=== PATIENT | male | born 1975 | race Hispanic/Latino ===

== ENCOUNTER 2017-04-15 00:46 | Inpatient (IN) | payer OTHER ==
--- NOTE | 2017-04-15 01:06 | ED PDOC ---
Arrival/HPI - General Chief Complaint: Alcohol Ingestion Time Seen by Provider: 04/15/17 00:51 Historian: Patient - History of Present Illness Narrative History of Present Illness (Text): 04/15/17 01:06 Ru Arguelles is a 41 year old male, whose past medical history includes chronic alcohol abuse and substance abuse, who presents to the Emergency department brought in by EMS for alcohol intoxication. Patient states he drank alcohol, used cocaine and smoked marijuana tonight. Patient also reports he is experiencing chest pain and hematemesis. Patient denies any fever, chills, shortness of breath, diarrhea, urinary symptoms, back pain, neck pain, headache , dizziness, or any other complaints. Time/Duration: Other (tonight) Symptom Onset: Gradual Symptom Course: Unchanged Activities at Onset: Rest, Light Past Medical History - Provider Review Nursing Documentation Reviewed: Yes - Infectious Disease Hx of Infectious Diseases: None - Tetanus Immunization Tetanus Immunization: Unknown - Past Medical History Past Medical History: No Previous - Cardiac Hx Cardiac Disorders: No - Pulmonary Hx Respiratory Disorders: No - Neurological Hx Neurological Disorder: Yes Hx Dizziness: Yes Hx Seizures: Yes - HEENT Hx HEENT Disorder: No - Renal Hx Renal Disorder: No - Endocrine/Metabolic Hx Endocrine Disorders: No - Hematological/Oncological Hx Blood Disorders: Yes Other/Comment: alcoholic hepatitis, rhabdomyalysis - Integumentary Hx Dermatological Disorder: No - Musculoskeletal/Rheumatological Hx Musculoskeletal Disorders: Yes Hx Back Pain: Yes Hx Falls: Yes Hx Unsteady Gait: Yes Other/Comment: HX RECURRENT LEFT SHOULDER DISLOCATION - Gastrointestinal Hx Gastrointestinal Disorders: No - Genitourinary/Gynecological Hx Genitourinary Disorders: No - Psychiatric Hx Psychophysiologic Disorder: Yes (ETOH ABUSE,DRINKS DAILY,COCAINE USE-SNIFFS) Hx Anxiety: Yes Hx Substance Use: Yes (COCAINE USE.) - Past Surgical History Past Surgical History: No Previous - Surgical History Other/Comment: ENDOSCOPY, COLONOSCOPY. admits to having a dislocated shoulder - Anesthesia Hx Anesthesia: Yes Hx Anesthesia Reactions: No Hx Malignant Hyperthermia: No - Suicidal Assessment Feels Threatened In Home Enviroment: No Family/Social History - Physician Review Nursing Documentation Reviewed: Yes Family/Social History: Unknown Family HX Smoking Status: Current Some Days Smoker Hx Alcohol Use: Yes (ETOH ABUSE. DRINKS DAILY UNCERTAIN ABOUT AMOUNT) Frequency of alcohol use: Daily Hx Substance Use: Yes (COCAINE USE.) Hx Substance Use Treatment: No Allergies/Home Meds Allergies/Adverse Reactions: Allergies No Known Allergies Allergy (Verified 04/15/17 15:01) Home Medications: Home Meds Medication Instructions Recorded Confirmed ALPRAZolam [Xanax] 1 mg PO TID 04/15/17 04/15/17 levETIRAcetam [Keppra] 500 mg PO BID 04/15/17 04/15/17 Review of Systems - Physician Review All systems were reviewed & negative as marked: Yes - Review of Systems Constitutional: Normal. absent: Fevers Eyes: Normal ENT: Normal Respiratory: Normal. absent: SOB, Cough Cardiovascular: Chest Pain Gastrointestinal: Hematemesis. absent: Diarrhea Genitourinary Male: Normal. absent: Dysuria, Frequency, Hematuria, Urinary Output Changes Musculoskeletal: Normal. absent: Back Pain, Neck Pain Skin: Normal. absent: Rash Neurological: Normal. absent: Headache, Dizziness Endocrine: Normal Hemo/Lymphatic: Normal Psychiatric: Other (+alcohol intoxication) Physical Exam Vital Signs Reviewed: Yes Vital Signs Temp Pulse Resp BP Pulse Ox 04/15/17 03:38 87 19 133/75 96 04/15/17 00:57 68.3 F L 106 H 20 156/114 H 99 Temperature: Afebrile Blood Pressure: Normal Pulse: Regular Respiratory Rate: Normal Appearance: Positive for: Well-Appearing, Non-Toxic, Comfortable Pain Distress: None Mental Status: Positive for: Alert and Oriented X 3 - Systems Exam Head: Present: Atraumatic, Normocephalic Pupils: Present: PERRL Extroacular Muscles: Present: EOMI Conjunctiva: Present: Normal Mouth: Present: Moist Mucous Membranes Neck: Present: Normal Range of Motion Respiratory/Chest: Present: Clear to Auscultation, Good Air Exchange. No: Respiratory Distress, Accessory Muscle Use Cardiovascular: Present: Regular Rate and Rhythm, Normal S1, S2. No: Murmurs Abdomen: Present: Normal Bowel Sounds. No: Tenderness, Distention, Peritoneal Signs Back: Present: Normal Inspection Upper Extremity: Present: Normal Inspection. No: Cyanosis, Edema Lower Extremity: Present: Normal Inspection. No: Edema Neurological: Present: GCS=15, CN II-XII Intact, Speech Normal Skin: Present: Warm, Dry, Normal Color. No: Rashes Psychiatric: Present: Alert, Oriented x 3, Normal Insight, Normal Concentration Medical Decision Making ED Course and Treatment: 04/15/17 01:06 Impression: 41 year old male brought in for alcohol intoxication complaining of chest pain and hematemesis. Plan: -- EKG -- Chest X-ray -- Labs, cardiac enzymes, alcohol level, blood type and screen -- Urine drug screen -- IV fluids -- Reassess and disposition Prior Visits: Notes and results from previous visits were reviewed. On 08/04/2016, pt was seen in the Emergency department for alcohol intoxication s/p fall. Pt was d/c home. Progress Notes: Reviewed EKG, NSR at [address]pm. LVH. Non-specific ST/T wave changes. 04/15/17 04:[address] Laquita Casper, house physician, who is aware and agrees with plan. Accepts pt in to hospitalist service. Pt will go to Telemetry for chest pain and hematemesis. vice president education notified. 04/15/17 04:40 Reviewed radiology, Chest X-ray shows no acute processes. - Lab Interpretations Lab Results: 04/15/17 01:46 04/15/17 01:46 Lab Results 04/15/17 01:46: Lipase 243 04/15/17 01:46: TSH 3rd Generation 1.5 04/15/17 01:46: Phosphorus 4.1, Magnesium 2.1 04/15/17 01:46: PT 10.9, INR 1.01, APTT 30.2 04/15/17 01:46: Blood Type A POSITIVE, Antibody Screen Negative, BBK History Checked Patient has bt 04/15/17 01:46: WBC 5.6, RBC 4.77, Hgb 14.4, Hct 41.0 L, MCV 86.0, MCH 30.2, MCHC 35.1, RDW 12.3, Plt Count 270, MPV 8.4 04/15/17 01:46: Alcohol, Quantitative 375 H* 04/15/17 01:46: Sodium 142, Potassium 3.9, Chloride 101, Carbon Dioxide 23, Anion Gap 22 H, BUN 12, Creatinine 0.9, Est GFR ( Amer) > 60, Est GFR ( Non-Af Amer) > 60, Random Glucose 97, Calcium 8.5, Total Bilirubin 0.4, AST 60 H , ALT 48, Alkaline Phosphatase 93, Lactate Dehydrogenase 638, Total Creatine Kinase 305 H, CK-MB (CK-2) 1.8, CK-MB (CK-2) % Cancelled, Troponin I < 0.01 D, Total Protein 8.0, Albumin 4.6, Globulin 3.4, Albumin/Globulin Ratio 1.4 I have reviewed the lab results: Yes - RAD Interpretation Radiology Orders: 04/15/17 04:08 CHEST PORTABLE [RAD] Stat - EKG Interpretation Interpreted by ED Physician: Yes Type: 12 lead EKG - Medication Orders Current Medication Orders: Folic Acid (Folic Acid) 1 mg PO DAILY [facility] Last Admin: 04/15/17 10:33 Dose: 1 mg Multivitamins/Vitamin C 10 ml/Thiamine HCl 100 mg/ Folic Acid 1 mg/ Sodium Chloride 1,011.2 mls @ 100 mls/hr IV .Q10H7M ONE Stop: 04/15/17 23:06 Last Admin: 04/15/17 15:00 Dose: 100 mls/hr Levetiracetam 1,000 mg/ Sodium (Chloride) 110 mls @ 460 mls/hr IV Q12 [facility] Sodium Bicarbonate 150 meq/ (Dextrose) 1,150 mls @ 100 mls/hr IV .[id number] [facility] Lorazepam (Ativan) 2 mg IVP Q2H PRN; Protocol PRN Reason: Agitation Multivitamins/Minerals (Therapeutic-M Tab) 1 tab PO 0800 [facility] Last Admin: 04/15/17 10:33 Dose: 1 tab Nitroglycerin (Nitrostat Sl Tab) 0.4 mg SL Q5MIN PRN PRN Reason: Chest Pain Ondansetron HCl (Zofran Inj) 4 mg IVP Q6H PRN PRN Reason: Nausea/Vomiting Last Admin: 04/15/17 10:49 Dose: 4 mg Pantoprazole Sodium (Protonix Inj) 40 mg IVP DAILY [facility] Last Admin: 04/15/17 10:32 Dose: 40 mg Thiamine HCl (Vitamin B1 Tab) 50 mg PO DAILY [facility] Last Admin: 04/15/17 10:33 Dose: 50 mg Discontinued Medications Aspirin (Aspirin Chewable) 81 mg PO STAT STA Stop: 04/15/17 05:29 Multivitamins/Vitamin C 10 ml/Thiamine HCl 100 mg/ Folic Acid 1 mg/ Sodium Chloride 1,011.2 mls @ 100 mls/hr IV .Q10H7M ONE Stop: 04/15/17 11:17 Last Admin: 04/15/17 01:15 Dose: 100 mls/hr Lorazepam (Ativan) 2 mg IVP Q2H PRN; Protocol PRN Reason: Symptoms of alcohol withdrawl Last Admin: 04/15/17 14:23 Dose: 2 mg Lorazepam (Ativan) 1 mg IVP Q2H PRN; Protocol PRN Reason: Agitation Last Admin: 04/15/17 10:48 Dose: 1 mg Re-Assess: Reassess Psych Meds Document 04/15/17 11:18 LM (Rec: 04/15/17 12:54 LM [id number]) Reassess Psych Med Effective Lorazepam (Ativan) Confirm Administered Dose 2 mg .ROUTE .STK-MED ONE Stop: 04/15/17 14:09 Last Admin: 04/15/17 14:27 Dose: Lorazepam (Ativan) 2 mg IVP ONCE ONE PRN Reason: Protocol Stop: 04/15/17 14:10 Last Admin: 04/15/17 14:26 Dose: 2 mg Ondansetron HCl (Zofran Inj) 4 mg IVP ONCE ONE Stop: 04/15/17 14:13 Pneumococcal Polyvalent Vaccine (Pneumovax 23 Vaccine) 0.5 ml IM .ONCE ONE Stop: 04/15/17 13:24 - Scribe Statement The provider has reviewed the documentation as recorded by the Scribivan Le Provider Scribe Attestation: All medical record entries made by the Scribe were at my direction and personally dictated by me. I have reviewed the chart and agree that the record accurately reflects my personal performance of the history, physical exam, medical decision making, and the department course for this patient. I have also personally directed, reviewed, and agree with the discharge instructions and disposition. Disposition/Present on Arrival - Present on Arrival Any Indicators Present on Arrival: No History of DVT/PE: No History of Uncontrolled Diabetes: No Urinary Catheter: No History of Decub. Ulcer: No History Surgical Site Infection Following: None - Disposition Have Diagnosis and Disposition been Completed?: Yes Diagnosis: Chest pain, Cocaine substance abuse, Alcohol intoxication, Gastrointestinal hemorrhage Disposition: HOSPITALIZED Disposition Time: 04:39 Patient Plan: Observation Patient Problems: Current Active Problems Problem Status Onset Alcohol intoxication Acute Chest pain Acute Gastrointestinal hemorrhage Acute Cocaine substance abuse Chronic Condition: STABLE
[2017-04-15] MEDS ORDERED: Multivitamin (MVI) 10 ML, Thiamine 100 MG, Folic Acid 1 MG in Sodium Chloride 0.9% 1,00... IV ONE ×2 (01:11→13:00)
[2017-04-15 02:02] LABS: HEMOGLOBIN 14.4 gm/dL (14.0-18.0); MEAN CORPUSCULAR HEMOGLOBIN 30.2 pg (25.0-35.0); MEAN CORPUSCULAR HGB CONC 35.1 g/dl (31.0-37.0); MEAN PLATELET VOLUME 8.4 fl (7.0-11.0); RBC 4.77 10^6/uL (3.5-6.1); RED CELL DISTRIBUTION WIDTH 12.3 % (11.5-14.5); WHITE BLOOD COUNT 5.6 10^3/ul (4.5-11.0)
[2017-04-15 02:07] LABS: ALB/GLOB RATIO 1.4 (1.1-1.8); ALBUMIN 4.6 g/dL (3.0-4.8); ALT/SGPT 48 U/L (7-56); AST/SGOT 60 U/L (15-59); BLOOD UREA NITROGEN 12 mg/dL (7-21); CALCIUM 8.5 mg/dL (8.4-10.5); GFR AFRICAN-AMERICAN > 60; GFR NON-AFRICAN AMERICAN > 60
[2017-04-15 02:10] LABS: INR 1.01 (0.93-1.08); PARTIAL THROMBOPLASTIN TIME 30.2 Seconds (23.7-30.8); PROTHROMBIN TIME 10.9 Seconds (9.9-11.8)
[2017-04-15 02:18] LABS: TROPONIN I < 0.01 ng/mL
[2017-04-15 02:22] LABS: CK-MB 1.8 ng/mL (0.0-3.6)
[2017-04-15 05:06] LABS: MAGNESIUM 2.1 mg/dL (1.7-2.2)
--- NOTE | 2017-04-15 05:41 | CP.PCM.HP ---
History of Present Illness - History of Present Illness History of Present Illness: Pt is a 41 yo M with a PMHx of chronic alcohol and substance abuse presents with a cc of chest pain. Pt admits to heavy alcohol use (beer and whiskey), cocaine, and marijuana use over the last few days. During this time, he reports non-localized, constant chest pain and pressure. Pt denies an alleviating or aggravating factors. Pt also admits to nausea and non-bilious hematemesis x1. Pt reports diffuse abdominal pain, but denies changes in bowel movements. Pt states he fell yesterday on his side but did not hit his head. Pt is a poor historian as he could not remember many of the events over the last day. Pt has been admitted several times in the past for similar occurances. Pt denies fever , chills, or SOB. PMHx: chronic alcohol abuse, substance abuse Surg: None FHx: Unknown SH: Tobacco 1 pack/day, heavy EtOH use (beer and whiskey), cocaine and marijuana use All: Keppra Medications: None Present on Admission - Present on Admission Any Indicators Present on Admission: No Review of Systems - Review of Systems Systems not reviewed;Unavailable: Intoxicated - Constitutional Constitutional: absent: Chills, Fatigue, Headache, Malaise, Weakness - EENT Eyes: absent: Blind Spots, Blurred Vision, Change in Vision, Pain Ears: absent: Decreased Hearing, Ear Pain, Tinnitus Nose/Mouth/Throat: absent: Epistaxis, Nasal Congestion, Nasal Discharge, Nose Pain, Sinus Pressure, Dry Mouth - Cardiovascular Cardiovascular: Chest Pain, Palpitations. absent: Dyspnea, Edema, Irregular Heart Rhythm, Orthopnea, Syncope - Respiratory Respiratory: absent: Cough, Dyspnea, Hemoptysis, Wheezing - Gastrointestinal Gastrointestinal: Abdominal Pain, Hematemesis. absent: Constipation, Diarrhea, Hematochezia, Loose Stools - Genitourinary Genitourinary: absent: Dysuria, Hematuria, Pyuria, Nocturia, Urinary Incontinence - Musculoskeletal Musculoskeletal: absent: Arthralgias, Atrophy, Back Pain, Myalgias, Stiffness - Integumentary Integumentary: absent: Lesions, Pruritus, Rash, Sores, Swelling - Neurological Neurological: absent: Dizziness, Numbness, Headaches, Paresthesias, Vertigo, Weakness - Endocrine Endocrine: absent: Cold Intolorance, Flushing, Heat Intolorance, Polydipsia, Polyphagia, Polyuria - Hematologic/Lymphatic Hematologic: absent: Easy Bleeding, Easy Bruising, Lymphadenopathy Past Patient History - Infectious Disease Hx of Infectious Diseases: None - Tetanus Immunizations Tetanus Immunization: Unknown - Past Medical History & Family History Past Medical History?: Yes - Past Social History Smoking Status: Current Some Days Smoker - CARDIAC Hx Cardiac Disorders: No - PULMONARY Hx Respiratory Disorders: No - NEUROLOGICAL Hx Neurological Disorder: Yes Hx Dizziness: Yes Hx Seizures: Yes - HEENT Hx HEENT Problems: No - RENAL Hx Chronic Kidney Disease: No - ENDOCRINE/METABOLIC Hx Endocrine Disorders: No - HEMATOLOGICAL/ONCOLOGICAL Hx Blood Disorders: Yes Other/Comment: alcoholic hepatitis, rhabdomyalysis - INTEGUMENTARY Hx Dermatological Problems: No - MUSCULOSKELETAL/RHEUMATOLOGICAL Hx Musculoskeletal Disorders: Yes Hx Back Pain: Yes Hx Falls: Yes Hx Unsteady Gait: Yes Other/Comment: HX RECURRENT LEFT SHOULDER DISLOCATION - GASTROINTESTINAL Hx Gastrointestinal Disorders: No - GENITOURINARY/GYNECOLOGICAL Hx Genitourinary Disorders: No - PSYCHIATRIC Hx Psychophysiologic Disorder: Yes (ETOH ABUSE,DRINKS DAILY,COCAINE USE-SNIFFS) Hx Anxiety: Yes Hx Substance Use: Yes (COCAINE USE.) - SURGICAL HISTORY Other/Comment: ENDOSCOPY, COLONOSCOPY. admits to having a dislocated shoulder - ANESTHESIA Hx Anesthesia: Yes Hx Anesthesia Reactions: No Hx Malignant Hyperthermia: No Meds Allergies/Adverse Reactions: Allergies Allergy/AdvReac Type Severity Reaction Status Date / Time levetiracetam [From Kera] Allergy SHORTNESS Verified 04/15/17 00:56 OF BREATH Physical Exam - Constitutional Appears: No Acute Distress, Confused - Head Exam Head Exam: ATRAUMATIC, NORMOCEPHALIC - Eye Exam Eye Exam: Conjunctival injection, EOMI, PERRL Additional comments: subconjunctival hemorrhage right - ENT Exam ENT Exam: Mucous Membranes Moist - Neck Exam Neck exam: Positive for: Full Rom. Negative for: Lymphadenopathy, Tenderness, Thyromegaly - Respiratory Exam Respiratory Exam: Clear to Auscultation Bilateral. absent: Rales, Rhonchi, Wheezes - Cardiovascular Exam Cardiovascular Exam: RRR, +S1, +S2. absent: Diastolic murmur, Gallop, Rubs, Systolic Murmur - GI/Abdominal Exam GI & Abdominal Exam: Guarding, Tenderness (diffuse). absent: Distended, Rebound , Soft - Neurological Exam Neurological exam: Alert Additional comments: intoxicated, oriented to person and place - Psychiatric Exam Additional comments: Confused - Skin Skin Exam: Diaphoretic, Intact, Normal Color, Warm Results - Vital Signs Recent Vital Signs: Last Vital Signs Temp 68.3 F L 04/15/17 00:57 Pulse 87 04/15/17 03:38 Resp 19 04/15/17 03:38 BP 133/75 04/15/17 03:38 Pulse Ox 96 04/15/17 03:38 - Labs Result Diagrams: 04/15/17 01:46 04/15/17 01:46 Assessment & Plan - Assessment and Plan (Free Text) Assessment: 41 yo M with a PMHx of chronic alcohol and substance abuse will be admitted for evaluation and treatment for alcohol withdrawal and chest pain. 1. Chest pain r/o acs -Cardiology consulted -F/u Serial troponins (first negative) and TSH -Daily EKG (1st EKG showed NSR with LVH) -Echocardiogram -ASA 2. Alcohol withdrawal -[facility] protocol -Banana bag -Ativan 1q2 prn -Folic acid, thiamine, multivitamin -F/u repeat alcohol level -Gravity Meter Observer on alcohol risks and cessation 3. Abdominal pain -GI consulted -F/u Lipase -F/u CT abdomen -Monitor LFTs -Zofran for nausea 4. GI/DVT PPx -Protonix -SCDs Pt was seen and discussed in detail with Dr. Casper.
--- NOTE | 2017-04-15 08:06 | RAD ---
HISTORY: pain COMPARISON: 05/05/2016 FINDINGS: LUNGS: The lungs are well inflated and clear. PLEURA: No significant pleural effusion identified, no pneumothorax apparent. CARDIOVASCULAR: Normal. OSSEOUS STRUCTURES: No significant abnormalities. VISUALIZED UPPER ABDOMEN: Normal. OTHER FINDINGS: None. IMPRESSION: No active pulmonary disease.
--- NOTE | 2017-04-15 10:05 | CT ---
PROCEDURE: CT Abdomen and Pelvis without intravenous contrast HISTORY: abdominal pain COMPARISON: 01/11/2016 TECHNIQUE: Without contrast.. Contrast Dose: 0 Radiation dose: Total exam DLP = 335.13 mGy-cm. This CT exam was performed using one or more of the following dose reduction techniques: Automated exposure control, adjustment of the mA and/or kV according to patient size, and/or use of iterative reconstruction technique. FINDINGS: LOWER THORAX: Unremarkable. LIVER: Unremarkable. No gross lesion or ductal dilatation. GALLBLADDER AND BILE DUCTS: Unremarkable. PANCREAS: Unremarkable. No gross lesion or ductal dilatation. SPLEEN: Unremarkable. ADRENALS: Unremarkable. No mass. KIDNEYS AND URETERS: Unremarkable. No hydronephrosis. No solid mass. VASCULATURE: Unremarkable. No aortic aneurysm. BOWEL: Sigmoid diverticulosis without evidence of diverticulitis. APPENDIX: Unremarkable. Normal appendix. PERITONEUM: Unremarkable. No free fluid. No free air. LYMPH NODES: Unremarkable. No enlarged lymph nodes. BLADDER: Unremarkable. REPRODUCTIVE: Normal prostate BONES: No acute fracture. OTHER FINDINGS: None. IMPRESSION: Sigmoid diverticulosis. No evidence of diverticulitis. No other significant abnormality identified.
[2017-04-15] MEDS: Multivitamin With Minerals Tab PO SCH (10:33)
--- NOTE | 2017-04-15 12:43 | CARD ---
APPROVED REPORT EXAM: Two-dimensional and M-mode echocardiogram with Doppler and color Doppler. INDICATION Chest Pain 2D DIMENSIONS Left Atrium (2D)3.8 (1.6-4.0cm)IVSd1.1 (0.7-1.1cm) LVDd5.2 (3.9-5.9cm)PWd1.0 (0.7-1.1cm) LVDs3.6 (2.5-4.0cm)FS (%) 31.3 % LVEF (%)59.0 (>50%) M-Mode DIMENSIONS Aortic Root2.90 (2.2-3.7cm)Aortic Cusp Exc.1.70 (1.5-2.0cm) Aortic Valve AoV Peak Dhwbyecz664.0cm/Pardeep Peak GR.18mmHg Mitral Valve MV E Tzoszbsf84.3cm/sMV A Tnqxmbdl40.7cm/sE/A ratio1.3 TDI E/Lateral E'0.0E/Medial E'0.0 Tricuspid Valve TR Peak [id number]/sRAP [id number] Peak Gr.27mmHg [id number] LEFT VENTRICLE The left ventricle is normal size. There is normal left ventricular wall thickness. The left ventricular function is normal. The left ventricular ejection fraction is within the normal range. There is normal LV segmental wall motion. The left ventricular diastolic function is normal. RIGHT VENTRICLE The right ventricle is normal size. There is normal right ventricular wall thickness. The right ventricular systolic function is normal. ATRIA The left atrium size is normal. The right atrium size is normal. AORTIC VALVE The aortic valve is not well visualized. MITRAL VALVE The mitral valve is normal in structure. Mitral regurgitation is trace. TRICUSPID VALVE There is mild tricuspid regurgitation. There is mild pulmonary hypertension. GREAT VESSELS The aortic root is normal in size. The IVC is normal in size and collapses >50% with inspiration. PERICARDIAL EFFUSION There is no pericardial effusion. <Conclusion> The left ventricle is normal size. There is normal left ventricular wall thickness. The left ventricular function is normal. The left ventricular ejection fraction is within the normal range. There is normal LV segmental wall motion. The left ventricular diastolic function is normal. There is mild tricuspid regurgitation. There is mild pulmonary hypertension.
[2017-04-15 13:23] VITALS: BMI 23.4
[2017-04-15] MEDS ORDERED: Pneumococcal 23-Valent Vaccine IM ONE (13:23)
--- NOTE | 2017-04-15 14:23 | CP.PCM.PN ---
<BREANAN PRICE - Last Filed: 04/15/17 15:13> Subjective - Date & Time of Evaluation Date of Evaluation: 04/15/17 Time of Evaluation: 13:58 - Subjective Subjective: Rapid Response Team Code star was called at for patient after an unwitnessed fall, and the rapid response team responded stat. Patient was noted to be lethargic and diaphoretic and so a [employer]EDBACK was called at 1350. The patient was admitted for ETOH intoxication , chest and abdominal pain a/w vomiting and blood alcohol level was known to be elevated upon admission. Vitals upon arrival of team was 157/81, HR 118, RR 20, SaO2 97% on RA and his finger stick was 72. The patient was noted to be somewhat lethargic and writhing uncomfortably in bed with frequent dry heaving but no vomiting, and the patient did not offer any additional complaints. PMHx seizure disorder and ETOH abuse Objective - Vital Signs/Intake and Output Vital Signs (last 24 hours): Temp Pulse Resp BP Pulse Ox 98.3 F 87 19 133/75 96 04/15/17 13:08 04/15/17 13:08 04/15/17 13:08 04/15/17 13:08 04/15/17 03:38 - Medications Medications: Current Medications Folic Acid (Folic Acid) 1 mg PO DAILY [facility] Last Admin: 04/15/17 10:33 Dose: 1 mg Multivitamins/Vitamin C 10 ml/Thiamine HCl 100 mg/ Folic Acid 1 mg/ Sodium Chloride 1,011.2 mls @ 100 mls/hr IV .Q10H7M ONE Stop: 04/15/17 23:06 Lorazepam (Ativan) 2 mg IVP Q2H PRN; Protocol PRN Reason: Agitation Multivitamins/Minerals (Therapeutic-M Tab) 1 tab PO 0800 [facility] Last Admin: 04/15/17 10:33 Dose: 1 tab Nitroglycerin (Nitrostat Sl Tab) 0.4 mg SL Q5MIN PRN PRN Reason: Chest Pain Ondansetron HCl (Zofran Inj) 4 mg IVP Q6H PRN PRN Reason: Nausea/Vomiting Last Admin: 04/15/17 10:49 Dose: 4 mg Pantoprazole Sodium (Protonix Inj) 40 mg IVP DAILY [facility] Last Admin: 04/15/17 10:32 Dose: 40 mg Thiamine HCl (Vitamin B1 Tab) 50 mg PO DAILY [facility] Last Admin: 04/15/17 10:33 Dose: 50 mg - Labs Labs: PT 10.9 Seconds (9.9-11.8) 04/15/17 01:46 INR 1.01 (0.93-1.08) 04/15/17 01:46 APTT 30.2 Seconds (23.7-30.8) 04/15/17 01:46 - Constitutional Appears: Toxic, In Acute Distress (nausea and diaphoretic) - Head Exam Head Exam: ATRAUMATIC, NORMAL INSPECTION, NORMOCEPHALIC - Eye Exam Eye Exam: EOMI, Normal appearance. absent: Scleral icterus Additional comments: R eye erythematous conjuctiva - ENT Exam ENT Exam: Mucous Membranes Moist, Normal Exam - Neck Exam Neck Exam: Normal Inspection - Respiratory Exam Respiratory Exam: Clear to Ausculation Bilateral, NORMAL BREATHING PATTERN - Cardiovascular Exam Cardiovascular Exam: Tachycardia, +S1, +S2 - GI/Abdominal Exam GI & Abdominal Exam: Soft, Normal Bowel Sounds - Neurological Exam Neurological Exam: Altered (lethargic and minimally responsive to questions ) Additional comments: moving extremities spontaneously - Psychiatric Exam Psychiatric exam: Normal Affect, Normal Mood - Skin Skin Exam: Diaphoretic, Normal Color, Warm Assessment and Plan - Assessment and Plan (Free Text) Assessment: Fall w/ no clinical evidence of injury Hx of vomiting blood, r/o Cathi Freeman ETOH withdrawal Pancreatitis Hx of seizure disorder Plan: 1. fall - ct head stat - EKG showed sinus tachycardia with pulse around 114. 2. r/o Cathi-Freeman - ct chest 3. ETOH withdrawal - given 2mg ativan stat - scheduled for 2mg ativan q2 4. pancreatitis - repeat lipase and amylase 5. Seizure - 2mg given IV - seizure precautions - neuro checks ordered ABG, ammonia, lipase, and amylase stat. Baylee Estrada and Jermaine all responded to the call and evaluated the patient Patient to be observed closely <Aissatou Sharp - Last Filed: 04/15/17 15:24> Objective - Vital Signs/Intake and Output Vital Signs (last 24 hours): Temp Pulse Resp BP Pulse Ox 98.3 F 87 19 133/75 96 04/15/17 13:08 04/15/17 13:08 04/15/17 13:08 04/15/17 13:08 04/15/17 03:38 - Medications Medications: Current Medications Folic Acid (Folic Acid) 1 mg PO DAILY [facility] Last Admin: 04/15/17 10:33 Dose: 1 mg Multivitamins/Vitamin C 10 ml/Thiamine HCl 100 mg/ Folic Acid 1 mg/ Sodium Chloride 1,011.2 mls @ 100 mls/hr IV .Q10H7M ONE Stop: 04/15/17 23:06 Last Admin: 04/15/17 15:00 Dose: 100 mls/hr Levetiracetam 1,000 mg/ Sodium (Chloride) 110 mls @ 460 mls/hr IV Q12 [facility] Sodium Bicarbonate 150 meq/ (Dextrose) 1,150 mls @ 100 mls/hr IV .[id number] [facility] Lorazepam (Ativan) 2 mg IVP Q2H PRN; Protocol PRN Reason: Agitation Multivitamins/Minerals (Therapeutic-M Tab) 1 tab PO 0800 [facility] Last Admin: 04/15/17 10:33 Dose: 1 tab Nitroglycerin (Nitrostat Sl Tab) 0.4 mg SL Q5MIN PRN PRN Reason: Chest Pain Ondansetron HCl (Zofran Inj) 4 mg IVP Q6H PRN PRN Reason: Nausea/Vomiting Last Admin: 04/15/17 10:49 Dose: 4 mg Pantoprazole Sodium (Protonix Inj) 40 mg IVP DAILY [facility] Last Admin: 04/15/17 10:32 Dose: 40 mg Thiamine HCl (Vitamin B1 Tab) 50 mg PO DAILY [facility] Last Admin: 04/15/17 10:33 Dose: 50 mg - Labs Labs: PT 10.9 Seconds (9.9-11.8) 04/15/17 01:46 INR 1.01 (0.93-1.08) 04/15/17 01:46 APTT 30.2 Seconds (23.7-30.8) 04/15/17 01:46 Attending/Attestation - Attestation I have personally seen and examined this patient.: Yes I have fully participated in the care of the patient.: Yes I have reviewed all pertinent clinical information, including history, physical exam and plan: Yes Notes (Text): 04/15/17 15:17 Agree with documentation. T30 minsotal critical care time spent with patient:30 mins
[2017-04-15 14:36] LABS: ARTERIAL BLOOD GAS HCO3 10.8 mmol/L (21-28); ARTERIAL BLOOD GAS HEMOGLOBIN 14.4 g/dL (11.7-17.4); ARTERIAL BLOOD GAS O2 CAPACITY 19.6 mL/dl (16-24); ARTERIAL BLOOD GAS O2 CONTENT 19.1 ML/dl (15-23); ARTERIAL BLOOD GAS O2 SAT 97.3 % (95-98); ARTERIAL BLOOD GAS PCO2 29 mm/Hg (35-45); ARTERIAL BLOOD GAS TCO2 11.7 mmol.L (22-28)
--- NOTE | 2017-04-15 14:50 | CT ---
PROCEDURE: CT HEAD WITHOUT CONTRAST. HISTORY: pt fall COMPARISON: None available. TECHNIQUE: Axial computed tomography images were obtained through the head/brain without intravenous contrast. Radiation dose: Total exam DLP = 779 mGy-cm. This CT exam was performed using one or more of the following dose reduction techniques: Automated exposure control, adjustment of the mA and/or kV according to patient size, and/or use of iterative reconstruction technique. FINDINGS: HEMORRHAGE: No intracranial hemorrhage. BRAIN: No mass effect or edema. There is encephalomalacia in the right frontal lobe. This is unchanged VENTRICLES: Unremarkable. No hydrocephalus. CALVARIUM: Unremarkable. PARANASAL SINUSES: Unremarkable as visualized. No significant inflammatory changes. MASTOID AIR CELLS: Unremarkable as visualized. No inflammatory changes. OTHER FINDINGS: None. IMPRESSION: Chronic encephalomalacia in the right frontal lobe. No acute intracranial findings.
[2017-04-15 15:01] LABS: ARTERIAL BLOOD GAS PH 7.18 (7.35-7.45)
--- NOTE | 2017-04-15 15:09 | CT ---
PROCEDURE: CT Chest without contrast HISTORY: severe vomiting, r/o pneumomediastinum COMPARISON: None. TECHNIQUE: Contiguous axial images were obtained through the chest without intravenous contrast enhancement. Sagittal and coronal reconstructions were performed. Radiation dose (DLP): 609 mGy-cm. This CT exam was performed using one or more of the following dose reduction techniques: Automated exposure control, adjustment of the mA and/or kV according to patient size, and/or use of iterative reconstruction technique. FINDINGS: LUNGS: Clear lungs. Visualized airway clear. MEDIASTINUM: Unremarkable thoracic aorta. No aneurysm. Normal sized heart. Main pulmonary artery unremarkable. No vascular congestion. No lymphadenopathy. PLEURA: No pleural fluid. No pneumothorax. BONES: No fracture. No destructive lesion. UPPER ABDOMEN: Grossly unremarkable. OTHER FINDINGS: None. IMPRESSION: Unremarkable non-contrast enhanced CT of the chest. No evidence of pneumomediastinum
[2017-04-15] MEDS ORDERED: Sodium Bicarbonate 8.4% 150 MEQ in Dextrose 5% In Water 1,000 ML IV SCH (15:15)
[2017-04-15 15:16] LABS: AMYLASE 67 U/L (35-125); LIPASE 29 U/L (23-300)
[2017-04-15 16:16] LABS: BLOOD UREA NITROGEN 13 mg/dL (7-21); CALCIUM 8.8 mg/dL (8.4-10.5); GFR AFRICAN-AMERICAN > 60; GFR NON-AFRICAN AMERICAN > 60
[2017-04-15 17:14] LABS: HEMOGLOBIN 14.2 gm/dL (14.0-18.0); MEAN CELL VOLUME 86.6 fL (80.0-105.0); MEAN CORPUSCULAR HEMOGLOBIN 30.1 pg (25.0-35.0); MEAN CORPUSCULAR HGB CONC 34.8 g/dl (31.0-37.0); MEAN PLATELET VOLUME 8.8 fl (7.0-11.0); RBC 4.71 10^6/uL (3.5-6.1); RED CELL DISTRIBUTION WIDTH 12.4 % (11.5-14.5); WHITE BLOOD COUNT 15.9 10^3/ul (4.5-11.0)
[2017-04-15 17:33] LABS: ARTERIAL BLOOD GAS HCO3 22.7 mmol/L (21-28); ARTERIAL BLOOD GAS O2 SAT 97.8 % (95-98); ARTERIAL BLOOD GAS PCO2 35 mm/Hg (35-45); ARTERIAL BLOOD GAS PH 7.42 (7.35-7.45); ARTERIAL BLOOD GAS TCO2 23.8 mmol.L (22-28)
--- NOTE | 2017-04-15 20:41 | CARD ---
APPROVED REPORT EKG Measurement Heart [id number] [id number] <Conclusion> Sinus tachycardia Voltage criteria for left ventricular hypertrophy ST abnormality, possible digitalis effect Abnormal ECG
[2017-04-15] MEDS: levETIRAcetam 1,000 MG in Sodium Chloride 0.9% 100 ML IV SCH (22:49)
--- NOTE | 2017-04-15 23:22 | CARD ---
APPROVED REPORT EKG Measurement Heart [id number] [id number] <Conclusion> Normal sinus rhythm Prolonged QT Abnormal ECG
--- NOTE | 2017-04-15 23:26 | CARD ---
APPROVED REPORT EKG Measurement Heart [id number] [id number] <Conclusion> Normal sinus rhythm Minimal voltage criteria for LVH, may be normal variant Borderline ECG
[2017-04-16 00:09] LABS: URINE BILIRUBIN NEGATIVE (NEGATIVE); URINE BLOOD SMALL (NEGATIVE); URINE GLUCOSE (UA) NEGATIVE (NEGATIVE); URINE LEUKOCYTE ESTERASE NEGATIVE Leu/uL (NEGATIVE); URINE NITRATE NEGATIVE (NEGATIVE); URINE PROTEIN TRACE mg/dL (<30 mg/dL); URINE UROBILINOGEN 0.2 E.U./dL (<1 E.U./dL)
[2017-04-16 00:15] LABS: URINE APPEARANCE SL CLOUDY (CLEAR); URINE COLOR YELLOW (YELLOW)
[2017-04-16 00:48] LABS: BARBITURATES, UR NEGATIVE (NEGATIVE); BENZODIAZEPINES, UR NEGATIVE (NEGATIVE); OPIATES, UR NEGATIVE (NEGATIVE); PHENCYCLIDINE, UR NEGATIVE (NEGATIVE)
[2017-04-16 00:49] LABS: URINE EPITHELIAL CELLS 0 - 2 /hpf (0-5); URINE RBC 0 - 2 /hpf (0-2); URINE URIC ACID CRYSTALS SMALL /hpf; URINE WBC 0 - 2 /hpf (0-6)
--- NOTE | 2017-04-16 01:45 | CON ---
HISTORY OF PRESENT ILLNESS: I saw Mr. Arguelles this morning. He is a 41-year-old white male with past medical history of chronic severe alcohol use and substance abuse, admitted with complaints of chest pain. He related to me extremely heavy alcohol intake consisting of hard liquor, whisky, and also beer, the exact amount he could not clarify, he said "he couldn't remember". He also uses cocaine and marijuana extensively. He indicated that the heavy drinking episode this particular time resulted in some abdominal pain and subsequently nausea and vomiting. He indicated diarrhea as well. He was asked when his last endoscopic procedure was, he could not remember. He did relate he was here multiple times for similar problem. Despite the fact he has been advised to avoid substance abuse, he still continues despite the fact that he is getting into a lot of trouble with the heavy episodes of substance abuse and alcohol. PHYSICAL EXAMINATION VITAL SIGNS: I have reviewed this patient's vital signs. HEENT: Noncontributory. LUNGS: Clear to auscultation. HEART: Regular rhythm. ABDOMEN: Soft. Mild tenderness in the epigastric area. LABORATORY DATA: I reviewed this patient's laboratory data which includes H and H of 14 and 41, platelet count is 270. His INR is within normal limits. Chemistry indicates BUN and creatinine ratio of 12/0.9, AST and ALT ratio of 60/48 with an alkaline phosphatase of 93 and bili of 0.4. His CPK was 305. Lactate dehydrogenase was 638 with an alkaline phosphatase of 93. Lipase 243. Albumin 4.6. Alcohol level on admission was 375. I reviewed the CT images in the CAT scan department. The CT upon cursory image revealed a thick-walled stomach. There was also evidence of diffuse hepatic steatosis. The pancreas appeared to be noncontributory in this particular case. There was a substantial amount of air involved in both the small and large bowel. No bowel obstruction noted. The rectum has a substantial amount of air as well. ASSESSMENT: This is a 41-year-old white male, alcoholic, chronic substance abuser, admitted for exacerbation of abdominal pain, chest pain, associated with nausea and vomiting. The nausea and vomiting can be attributed to excessive intake of substances and at least from he was telling me, there was not a substantial amount of hematemesis associated with the episodes. Most of the vomiting was nonbloody. Abdominal pain he clarifies now at roughly 5/10. On examination of the patient, he has not exhibited a substantial amount of abdominal pain in the epigastric area or periumbilical. Review of laboratory parameters indicate H and H of reasonable level 11; therefore, there is no evidence of massive GI bleed. At this point in the time, the orders appear reasonable including thiamine, IV fluids, Ativan, folic acid, and Zofran. The patient should be watched closely for development of delirium tremens. At the current time point, since he has just left the CT department, he is currently in the echocardiography department for evaluation of complaints related to chest pain, I do not feel that this patient is a candidate for endoscopic evaluation at the current time point, I would opt more for conservative management. David Ngo DO, PhD [facility]
--- NOTE | 2017-04-16 05:38 | CON ---
DATE: 04/15/2017 HISTORY OF PRESENT ILLNESS: This is a 41-year-old gentleman with history of alcohol abuse, who presented to [facility] earlier today with history of severe alcohol intoxication. The patient has had some chest pain and experienced hematemesis; however, his CAT scan of the chest, abdomen, and pelvis did not reveal any pneumothorax or pneumomediastinum as well as three sets of troponin were negative. Today, the patient also was found to be transiently unresponsive; however, by the time of ICU evaluation, the patient was somewhat somnolent, but easily arousable. He does not have recollection of what happened, however, reportedly, he was found to be on the floor with his head down and with some foamy sputum coming out of his mouth. Of note, the patient does have a history of seizure disorder, and questionably compliant with his medication. Of note on admission, the patient was found to have alcohol level of 375, however 6 hours later, the alcohol dropped down to 222. The patient denies fever, chills, sweats, nausea, vomiting, or diarrhea. He was belching and retching, however reportedly (that is why CAT scan of the chest was done to rule out Boerhaave's and pneumomediastinum). PAST MEDICAL HISTORY: Include seizure disorder, recurrent left shoulder dislocation, alcoholic hepatitis, and back pain. SOCIAL HISTORY: The patient is chronic and avid alcohol abuser. He drinks daily hard liquor. He also is cocaine abuser and usually sniffs cocaine. ALLERGIES: NKDA. FAMILY HISTORY: Noncontributory. REVIEW OF SYSTEMS: Review of 12-point systems other than mentioned in history of present illness is negative.. MEDICATION AT HOME: Xanax and Keppra. PHYSICAL EXAMINATION VITAL SIGNS: Blood pressure 132/75, respiratory rate 19, oxygen saturation 96% on room air, temperature 98.3. HEENT: Atraumatic. LUNGS: Clear to auscultation bilaterally. HEART: Regular rate and rhythm. S1 and S2 normal. ABDOMEN: Soft, nontender, and nondistended. MUSCULOSKELETAL: No C/C/E. NEUROLOGY: The patient moves all extremities spontaneously. SKIN: Moist. PSYCH: The patient is somnolent, however, easily arousable and he is telling his name when asked. LABORATORY DATA: Alcohol 122, down from 375. WBC 5.6, hemoglobin is 14.4, platelet count 270. INR 1.01. PTT of 30.2. Sodium 142, potassium 3.9, chloride 101, carbon dioxide 23, BUN 12, creatinine is 0.9, phosphorus 4.1, magnesium 2.1. AST 60 and ALT 48. CPK 305, troponin x3 negative. Lipase 243. TSH 1.5. Blood gas that was performed right after the episode showed pH 7.18, pCO2 of 29, pO2 of 91. Lactic acid level 13.6. CT of head revealed chronic encephalomalacia without acute findings. Chest CT did not reveal pneumothorax or pneumomediastinum. No distinct infiltrate. Abdominal and pelvic CAT scan showed sigmoid diverticulosis. No evidence of diverticulitis. No other significant abnormality. ASSESSMENT AND PLAN: This is a 41-year-old gentleman who had altered mental status, most likely secondary to seizures whether related to breakthrough seizures or alcohol withdrawal (significant drop in alcohol level from 374 to 222 over few hour period). At present time, I will proceed with Keppra 1000 mg IV q. 12 hour. CAT scan was ordered and done, which did not revealed any structural abnormalities that would account for seizures or his presentation. I will order an EEG and request neurology consult for him. I will repeat ABG to ascertain resolution of severe metabolic acidosis, which also likely relates to his recent seizure and him being in postictal state at the present time. The fact that his mental status substantially improved over the short period of time also suggest that the patient may be in postictal state. Nevertheless, I will continue with IV fluid and add bicarbonate to his regimen. The patient does need to be on p.r.n. benzodiazepines as ordered. We will continue target euvolemia euglycemia and normothermia and oxygen saturation of 100%. We will continue with DVT and GI prophylaxis. The patient is clearly able to protect his airways. He is easily arousable and following commands. He is not drooling. He is not stridoring. He is not complaining of shortness of breath and does not appears to be tachypneic. His tachycardia is minimal (heart rate is 115), blood pressure is slightly elevated, which likely relates to relative alcohol withdrawal and as such hyperadrenergic state. At present time, however, patient does not need ICU, if metabolic acidosis persist or clinical situation deteriorates including, but not limited to hemodynamic instability, respiratory instability, please call ICU for evaluation. Addendum: repeat ABG showed resolution of metabolic acidosis and normalization of LA. Patient is alert, awake and able to protect his airways ccm time 40 min Ken Dean MD [facility]
[2017-04-16 05:55] LABS: MEAN CELL VOLUME 87.1 fL (80.0-105.0); MEAN CORPUSCULAR HEMOGLOBIN 29.9 pg (25.0-35.0); MEAN CORPUSCULAR HGB CONC 34.3 g/dl (31.0-37.0); MEAN PLATELET VOLUME 8.9 fl (7.0-11.0); RBC 4.35 10^6/uL (3.5-6.1); RED CELL DISTRIBUTION WIDTH 12.4 % (11.5-14.5); WHITE BLOOD COUNT 11.4 10^3/ul (4.5-11.0)
[2017-04-16 06:13] LABS: ALB/GLOB RATIO 1.5 (1.1-1.8); ALT/SGPT 42 U/L (7-56); AST/SGOT 68 U/L (15-59); BLOOD UREA NITROGEN 13 mg/dL (7-21); CALCIUM 8.6 mg/dL (8.4-10.5); GFR AFRICAN-AMERICAN > 60; GFR NON-AFRICAN AMERICAN > 60
[2017-04-16 07:05] LABS: CK MB% 0.7 % (2.5-3.0); CK-MB 7.9 ng/mL (0.0-3.6)
[2017-04-16 07:12] LABS: MAGNESIUM 2.1 mg/dL (1.7-2.2)
[2017-04-16] MEDS ORDERED: THIAMINE IV ONE ×2 (08:20→10:23)
[2017-04-16] MEDS ORDERED: FOLIC ACID IV ONE ×2 (08:20→10:23)
[2017-04-16] MEDS ORDERED: POTASSIUM CHLORIDE IV ONE ×2 (08:20→10:23)
[2017-04-16] MEDS ORDERED: MULTIVITAMIN IV ONE ×2 (08:20→10:23)
[2017-04-16] MEDS ORDERED: [UNRECOGNIZED DRUG - OTHER] IV ONE ×2 (08:20→10:23)
--- NOTE | 2017-04-16 08:40 | CON ---
CARDIOLOGY CONSULTATION REASON FOR CONSULTATION: Chest pain. HISTORY OF PRESENT ILLNESS: The patient is a 41 years old [place] male who was admitted because of alcohol intoxication and chest pain. The patient is unable to describe his chest discomfort, but he does report epigastric discomfort as well as nausea and vomiting. The patient is unaware of any history of pancreatitis in past and is unaware any history of heart attack in the past. Amylase was performed today and is within normal limits. SOCIAL HISTORY: The patient is EtOH abuser and has tested positive for cocaine in the urine in April of last year. MEDICATIONS: Ativan 1 mg intravenously q. 2 hours p.r.n., folic acid 1 mg p.o. daily, Protonix 20 mg intravenously daily, thiamine 50 mg once day, Zofran 4 mg intravenously q. 6 hours p.r.n. PHYSICAL EXAMINATION: GENERAL: The patient is a middle aged male who does not appear to be in respiratory distress. VITAL SIGNS: Blood pressure 128/73, heart rate 84, temperature 97.1 and respirations 20. HEENT: Normocephalic. CHEST: Clear. HEART: S1 and S2 regular. ABDOMEN: Epigastric tenderness. EXTREMITIES: No edema. LABORATORY DATA: Hemoglobin and hematocrit 14.4 and 41.0, white count and platelet are within normal limits. SMA-7 is within normal limits except for anion gap of 22. Two sets of troponins are negative. TSH level as well as lipase levels are within normal limits. PT and PTT are within normal limits. EKG revealed sinus rhythm with minimal voltage criteria for LVH. Abdomen and pelvis CT scan reveals sigmoid diverticulosis. No evidence of diverticulitis. No other significant abnormality. ASSESSMENT: 1. Atypical chest pain, myocardial infarction is ruled out. 2. Alcohol intoxication, the patient's alcohol level on admission was 375. 3. Rule out gastritis or peptic ulcer disease. RECOMMENDATIONS: Continue current folic acid, IV Protonix, oral thiamine, and p.r.n. IV Ativan. I will review echo cardiac study performed today. Andrew Madison MD
--- NOTE | 2017-04-16 09:07 | CP.PCM.CON ---
History of Present Illness - History of Present Illness History of Present Illness: Mr. Arguelles is a 41-year-old man with a past medical history of seizure disorder, who is also a chronic alcoholic and multi-drug abuser. He does not have a recollection of why he is in the hospital, but a review of his records demonstrates that he had a fall yesterday and he presented with complaints of chest pain. He denies having had a seizure and did not lose consciousness. Neurology was consulted to assist with the management and care. Review of Systems - Review of Systems All systems: reviewed and no additional remarkable complaints except Past Patient History - Infectious Disease Hx of Infectious Diseases: None - Tetanus Immunizations Tetanus Immunization: Unknown - Past Medical History & Family History Past Medical History?: Yes - Past Social History Smoking Status: Current Some Days Smoker - CARDIAC Hx Cardiac Disorders: No - PULMONARY Hx Respiratory Disorders: No - NEUROLOGICAL Hx Neurological Disorder: Yes Hx Dizziness: Yes Hx Seizures: Yes - HEENT Hx HEENT Problems: No - RENAL Hx Chronic Kidney Disease: No - ENDOCRINE/METABOLIC Hx Endocrine Disorders: No - HEMATOLOGICAL/ONCOLOGICAL Hx Blood Disorders: Yes Other/Comment: alcoholic hepatitis, rhabdomyalysis - INTEGUMENTARY Hx Dermatological Problems: No - MUSCULOSKELETAL/RHEUMATOLOGICAL Hx Musculoskeletal Disorders: Yes Hx Back Pain: Yes Hx Falls: Yes Hx Unsteady Gait: Yes Other/Comment: HX RECURRENT LEFT SHOULDER DISLOCATION - GASTROINTESTINAL Hx Gastrointestinal Disorders: No - GENITOURINARY/GYNECOLOGICAL Hx Genitourinary Disorders: No - PSYCHIATRIC Hx Psychophysiologic Disorder: Yes (ETOH ABUSE,DRINKS DAILY,COCAINE USE-SNIFFS) Hx Anxiety: Yes Hx Substance Use: Yes (COCAINE USE.) - SURGICAL HISTORY Other/Comment: ENDOSCOPY, COLONOSCOPY. admits to having a dislocated shoulder - ANESTHESIA Hx Anesthesia: Yes Hx Anesthesia Reactions: No Hx Malignant Hyperthermia: No Meds Allergies/Adverse Reactions: Allergies Allergy/AdvReac Type Severity Reaction Status Date / Time No Known Allergies Allergy Verified 04/15/17 15:01 - Medications Medications: Current Medications Folic Acid (Folic Acid) 1 mg PO DAILY [facility] Last Admin: 04/15/17 10:33 Dose: 1 mg Levetiracetam 1,000 mg/ Sodium (Chloride) 110 mls @ 460 mls/hr IV Q12 [facility] Last Admin: 04/15/17 22:49 Dose: 460 mls/hr Multivitamins/Vitamin C 10 ml/Thiamine HCl 100 mg/ Folic Acid 1 mg/ Potassium Chloride 40 meq/ Magnesium Sulfate 1 gm / Sodium Chloride 1,033.2 mls @ 100 mls /hr IV .[id number] ONE Stop: 04/16/17 18:39 Lorazepam (Ativan) 2 mg IVP Q6H [facility] PRN Reason: Protocol Last Admin: 04/16/17 06:53 Dose: 2 mg Multivitamins/Minerals (Therapeutic-M Tab) 1 tab PO 0800 [facility] Last Admin: 04/15/17 10:33 Dose: 1 tab Nitroglycerin (Nitrostat Sl Tab) 0.4 mg SL Q5MIN PRN PRN Reason: Chest Pain Ondansetron HCl (Zofran Inj) 4 mg IVP Q6H PRN PRN Reason: Nausea/Vomiting Last Admin: 04/15/17 10:49 Dose: 4 mg Pantoprazole Sodium (Protonix Inj) 40 mg IVP DAILY [facility] Last Admin: 04/15/17 10:32 Dose: 40 mg Thiamine HCl (Vitamin B1 Tab) 50 mg PO DAILY [facility] Last Admin: 04/15/17 10:33 Dose: 50 mg Physical Exam - Constitutional Appears: Well - Head Exam Head Exam: ATRAUMATIC, NORMAL INSPECTION, NORMOCEPHALIC - Eye Exam Eye Exam: Conjunctival injection, EOMI, PERRL - ENT Exam ENT Exam: Mucous Membranes Moist, Normal Exam - Neck Exam Neck exam: Positive for: Normal Inspection - Respiratory Exam Respiratory Exam: Clear to Auscultation Bilateral, NORMAL BREATHING PATTERN - Cardiovascular Exam Cardiovascular Exam: REGULAR RHYTHM, +S1, +S2 - GI/Abdominal Exam GI & Abdominal Exam: Normal Bowel Sounds, Soft. absent: Tenderness - Rectal Exam Rectal Exam: Deferred - Extremities Exam Extremities exam: Positive for: normal inspection - Back Exam Back exam: NORMAL INSPECTION - Neurological Exam Neurological exam: Alert, CN II-XII Intact, Normal Gait, Oriented x3, Reflexes Normal Additional comments: Sensation was intact throughout, plantar responses were normal. Non-focal neurological exam. - Psychiatric Exam Psychiatric exam: Normal Affect, Normal Mood Additional comments: somnolent Results - Vital Signs Recent Vital Signs: Last Vital Signs Temp 98.6 F 04/16/17 06:00 Pulse 80 04/16/17 06:00 Resp 20 04/16/17 06:00 BP 118/66 04/16/17 06:00 Pulse Ox 99 04/16/17 06:00 - Labs Result Diagrams: 04/16/17 05:30 04/16/17 05:30 Labs: Laboratory Results - last 24 hr 04/15/17 04/15/17 04/15/17 17:25 23:45 23:45 WBC RBC Hgb Hct MCV MCH MCHC RDW Plt Count MPV pCO2 35 pO2 80.0 HCO3 22.7 ABG pH 7.42 ABG Total CO2 23.8 ABG O2 Saturation 97.8 ABG Base Excess -1.3 ABG Potassium 3.8 Sodium 136.0 Chloride 104.0 Glucose 83 Lactate 1.1 FiO2 21.0 Potassium Carbon Dioxide Anion Gap BUN Creatinine Est GFR ( Amer) Est GFR (Non-Af Amer) Random Glucose Calcium Phosphorus Magnesium Total Bilirubin AST ALT Alkaline Phosphatase Total Creatine Kinase CK-MB (CK-2) CK-MB (CK-2) % Total Protein Albumin Globulin Albumin/Globulin Ratio Arterial Blood Potassium 3.8 Urine Color Yellow Urine Appearance Sl cloudy Urine pH 5.0 Ur Specific [place] >= 1.030 Urine Protein Trace H Urine Glucose (UA) Negative Urine Ketones 40 H Urine Blood Small H Urine Nitrate Negative Urine Bilirubin Negative Urine Urobilinogen 0.2 Ur Leukocyte Esterase Negative Urine RBC 0 - 2 Urine WBC 0 - 2 Ur Epithelial Cells 0 - 2 Uric Acid Crystals Small Urine Opiates Screen Negative Urine Methadone Screen Negative Ur Barbiturates Screen Negative Ur Phencyclidine Scrn Negative Ur Amphetamines Screen Negative U Benzodiazepines Scrn Negative U Oth Cocaine Metabols Negative U Cannabinoids Screen Negative 04/16/17 04/16/17 04/16/17 05:30 05:30 06:30 WBC 11.4 H D RBC 4.35 Hgb 13.0 L Hct 37.9 L MCV 87.1 MCH 29.9 MCHC 34.3 RDW 12.4 Plt Count 207 MPV 8.9 pCO2 pO2 HCO3 ABG pH ABG Total CO2 ABG O2 Saturation ABG Base Excess ABG Potassium Sodium 136 Chloride 100 Glucose Lactate FiO2 Potassium 3.6 Carbon Dioxide 25 Anion Gap 15 BUN 13 Creatinine 0.8 Est GFR ( Amer) > 60 Est GFR (Non-Af Amer) > 60 Random Glucose 76 Calcium 8.6 Phosphorus 3.1 Magnesium 2.1 Total Bilirubin 1.1 AST 68 H ALT 42 Alkaline Phosphatase 96 Total Creatine Kinase 1099 H CK-MB (CK-2) 7.9 H CK-MB (CK-2) % 0.7 L Total Protein 6.7 Albumin 4.0 Globulin 2.7 Albumin/Globulin Ratio 1.5 Arterial Blood Potassium Urine Color Urine Appearance Urine pH Ur Specific [place] Urine Protein Urine Glucose (UA) Urine Ketones Urine Blood Urine Nitrate Urine Bilirubin Urine Urobilinogen Ur Leukocyte Esterase Urine RBC Urine WBC Ur Epithelial Cells Uric Acid Crystals Urine Opiates Screen Urine Methadone Screen Ur Barbiturates Screen Ur Phencyclidine Scrn Ur Amphetamines Screen U Benzodiazepines Scrn U Oth Cocaine Metabols U Cannabinoids Screen - Imaging and Cardiology CT scan - head Status: Image reviewed by me, Report reviewed by me (No acute findings. ) Assessment & Plan (1) Seizure Assessment and Plan: The patient apparently has a history of seizure disorder. However, in the setting of multi-drug and alcohol abuse, it is difficult to decipher whether or not his seizures are drug induced or due to an underlying epilepsy. The patient should seek rehab for his drug and alcohol problem and be maintained on CIWA protocol. In the meantime, there is little harm in continuing Keppra 500 mg BID. He may obtain an EEG as an outpatient and may obtain an MRI, although there is no recently reported seizures and this can be worked up routinely. Thank you. Status: Chronic Priority: Medium
[2017-04-16] MEDS ORDERED: Sodium Chloride 0.9% 1,000 ML IV SCH (09:15)
--- NOTE | 2017-04-16 10:11 | PN ---
DATE: 04/16/2017 SUBJECTIVE: I saw Mr. Arguelles this morning. This is a 41-year-old white male with history of extensive alcohol use and substance abuse and is here for alcohol withdrawal and detox. At the bedside, the patient appears comfortable, also has an aid at the bedside on observation. The patient indicated no nausea, vomiting, or hematemesis or rectal bleeding; however, abdomen feels "tight." PHYSICAL EXAMINATION: VITAL SIGNS: I reviewed this patient's vital signs. HEENT: Noncontributory except for dry mouth. HEART: Regular rhythm. LUNGS: Clear to auscultation. ABDOMEN: Soft, mild tenderness in the epigastric area except from that noncontributory. LABORATORY DATA: Reviewed from yesterday H and H 14 and 40. Chemistry also reviewed. There is an update on the CT, note that I reviewed the CT yesterday. CT for the most part noncontributory except for a mildly thickened gastric wall. There was a sigmoid diverticulosis except this CT was noncontributory. ASSESSMENT AND PLAN: He is a 41-year-old white male with history of alcohol and substance abuse admitted for alcohol withdrawn and detoxification, treatment as per house staff, continue on current orders for later, which consists of Ativan, IV fluids, and thiamine. He is currently on pantoprazole and Zofran for gastric issues. David Ngo DO
[2017-04-16] MEDS: Multivitamin With Minerals Tab PO SCH (10:13)
[2017-04-16] MEDS: levETIRAcetam 1,000 MG in Sodium Chloride 0.9% 100 ML IV SCH ×2 (10:25→21:08)
--- NOTE | 2017-04-16 11:26 | CP.PCM.PCO ---
Physician Communication Note - Physician Communication Note Physician Communication Note: alcohol abuse is not indication to see psychiatrist, call SW
[2017-04-16 12:34] LABS: HEPATITIS B SURFACE AG NEGATIVE (NEGATIVE)
[2017-04-16 12:40] LABS: HEPATITIS A IGM NEGATIVE (NEGATIVE); HEPATITIS B CORE AB NEGATIVE (NEGATIVE)
[2017-04-16 12:51] LABS: HEPATITIS C ANTIBODY NEGATIVE (NEGATIVE)
--- NOTE | 2017-04-16 17:41 | CP.PCM.PN ---
<KamTomasz - Last Filed: 04/16/17 17:43> Subjective - Date & Time of Evaluation Date of Evaluation: 04/16/17 Time of Evaluation: 10:30 - Subjective Subjective: Disease Course: Pt is a 41 yo M with a PMHx of chronic alcohol and substance abuse presents with a cc of chest pain. Pt admits to heavy alcohol use (beer and whiskey), cocaine, and marijuana use over the last few days. During this time, he reports non-localized, constant chest pain and pressure. Pt also admits to nausea and non-bilious hematemesis x1. Pt is a poor historian as he could not remember many of the events over the last day. Pt has been admitted several times in the past for similar occurrences. Patient had a rapid response called on him yesterday, 04/15/2017, 2/2 a fall; patient was given Ativan and felt better. Pt s&e at bedside today, 04/15/2017. He is feeling less nauseas, less confused , but is tired. He has no further complaints. Objective - Vital Signs/Intake and Output Vital Signs (last 24 hours): Temp Pulse Resp BP Pulse Ox 97 F L 81 18 157/82 H 99 04/16/17 11:46 04/16/17 11:46 04/16/17 11:46 04/16/17 11:46 04/16/17 06:00 - Medications Medications: Current Medications Chlordiazepoxide (Librium) 25 mg PO Q8 [facility] PRN Reason: Protocol Folic Acid (Folic Acid) 1 mg PO DAILY [facility] Last Admin: 04/16/17 10:12 Dose: Not Given Levetiracetam 1,000 mg/ Sodium (Chloride) 110 mls @ 460 mls/hr IV Q12 [facility] Last Admin: 04/16/17 10:25 Dose: 460 mls/hr Multivitamins/Vitamin C 10 ml/Thiamine HCl 100 mg/ Folic Acid 1 mg/ Potassium Chloride 40 meq/ Magnesium Sulfate 1 gm / Sodium Chloride 1,033.2 mls @ 100 mls /hr IV .[id number] ONE Stop: 04/16/17 20:42 Last Admin: 04/16/17 11:10 Dose: 100 mls/hr Lorazepam (Ativan) 2 mg IVP Q6H [facility] PRN Reason: Protocol Last Admin: 04/16/17 13:54 Dose: 2 mg Multivitamins/Minerals (Therapeutic-M Tab) 1 tab PO 0800 [facility] Last Admin: 04/16/17 10:13 Dose: Not Given Nitroglycerin (Nitrostat Sl Tab) 0.4 mg SL Q5MIN PRN PRN Reason: Chest Pain Ondansetron HCl (Zofran Inj) 4 mg IVP Q6H PRN PRN Reason: Nausea/Vomiting Last Admin: 04/15/17 10:49 Dose: 4 mg Pantoprazole Sodium (Protonix Inj) 40 mg IVP DAILY [facility] Last Admin: 04/16/17 10:26 Dose: 40 mg Thiamine HCl (Vitamin B1 Tab) 50 mg PO DAILY [facility] Last Admin: 04/16/17 10:18 Dose: Not Given - Labs Labs: 04/16/17 05:30 04/16/17 05:30 PT 10.9 Seconds (9.9-11.8) 04/15/17 01:46 INR 1.01 (0.93-1.08) 04/15/17 01:46 APTT 30.2 Seconds (23.7-30.8) 04/15/17 01:46 - Additional Findings Additional findings: Constitutional: +drowsy; a&o x 4, nad Head and Neck: neck supple, no jvd, trachea midline, carotid midline, no cervical/head mass Eyes: katie, nonicteric sclera, eom intact ENT: auditory acuity grossly intact, throat not congested, no nasal deformity Cardio: rrr, no m/r/g, no carotid bruit, nml s1, s2 Pulm: no accessory muscle use, equal nml breath sounds bilaterally, ctab Abd: s/nt/nd, nbs x 4 q, no palpable masses Derm: no rashes, no ulcers, no lesions Extr: no edema, no cyanosis, no calf tenderness, no lesions, no varicosities Neuro: cn II-XII grossly intact, ue and le 5/5 muscle strength~bilaterally, no los ue, le bilaterally and core Assessment and Plan - Assessment and Plan (Free Text) Assessment: 41 yo M with a PMHx of chronic alcohol and substance abuse will be admitted for evaluation and treatment for alcohol withdrawal and chest pain. 1. Chest pain r/o acs -Cardiology consulted -Tropes, EKG, TSH all normal -Echo: LV normal, VEF normal; mild TR, mild pulm HTN 2. Alcohol withdrawal -[facility] protocol -Ativan 1q2 prn -Librium -Folic acid, thiamine, multivitamin -Entry Level Lab Technician on alcohol risks and cessation 3. Abdominal pain -GI consulted -F/u Lipase -F/u CT abdomen -Monitor LFTs -Zofran for nausea 4. GI/DVT PPx -Pepcid -SCDs Pt was seen and discussed in detail with Dr. Beach <Mari Beach - Last Filed: 04/16/17 18:00> Objective - Vital Signs/Intake and Output Vital Signs (last 24 hours): Temp Pulse Resp BP Pulse Ox 97 F L 81 18 157/82 H 99 04/16/17 11:46 04/16/17 11:46 04/16/17 11:46 04/16/17 11:46 04/16/17 06:00 - Medications Medications: Current Medications Chlordiazepoxide (Librium) 25 mg PO Q8 [facility] PRN Reason: Protocol Folic Acid (Folic Acid) 1 mg PO DAILY [facility] Last Admin: 04/16/17 10:12 Dose: Not Given Levetiracetam 1,000 mg/ Sodium (Chloride) 110 mls @ 460 mls/hr IV Q12 [facility] Last Admin: 04/16/17 10:25 Dose: 460 mls/hr Multivitamins/Vitamin C 10 ml/Thiamine HCl 100 mg/ Folic Acid 1 mg/ Potassium Chloride 40 meq/ Magnesium Sulfate 1 gm / Sodium Chloride 1,033.2 mls @ 100 mls /hr IV .[id number] ONE Stop: 04/16/17 20:42 Last Admin: 04/16/17 11:10 Dose: 100 mls/hr Lorazepam (Ativan) 2 mg IVP Q6H [facility] PRN Reason: Protocol Last Admin: 04/16/17 13:54 Dose: 2 mg Multivitamins/Minerals (Therapeutic-M Tab) 1 tab PO 0800 [facility] Last Admin: 04/16/17 10:13 Dose: Not Given Nitroglycerin (Nitrostat Sl Tab) 0.4 mg SL Q5MIN PRN PRN Reason: Chest Pain Ondansetron HCl (Zofran Inj) 4 mg IVP Q6H PRN PRN Reason: Nausea/Vomiting Last Admin: 04/15/17 10:49 Dose: 4 mg Pantoprazole Sodium (Protonix Inj) 40 mg IVP DAILY [facility] Last Admin: 04/16/17 10:26 Dose: 40 mg Thiamine HCl (Vitamin B1 Tab) 50 mg PO DAILY [facility] Last Admin: 04/16/17 10:18 Dose: Not Given - Labs Labs: 04/16/17 05:30 04/16/17 05:30 PT 10.9 Seconds (9.9-11.8) 04/15/17 01:46 INR 1.01 (0.93-1.08) 04/15/17 01:46 APTT 30.2 Seconds (23.7-30.8) 04/15/17 01:46 Attending/Attestation - Attestation I have personally seen and examined this patient.: Yes I have fully participated in the care of the patient.: Yes I have reviewed all pertinent clinical information, including history, physical exam and plan: Yes Notes (Text): 04/16/17 17:54 attending note; Patient seen and examined with resident. Patient is a 41-year-old male with a history of alcohol abuse is admitted with acute alcohol intoxication. Patient had severe withdrawal symptoms yesterday. Continue IV banana bag. Continue IV Ativan and Keppra. neurology evaluation appreciated. EEG done. Results pending. Severe nausea and vomiting; resolving slowly. started on liquid diet. Advance as tolerated. GI evaluation appreciated. mild rhabdomyoysis; post seizure. Monitor CPK. atypical chest pain; cardiac enzymes negative. Cardiology evaluation appreciated. echocardiogram normal. Currently on one-to-one observation. Monitor closely. PT evaluation requested. Possible discharge home in 24-48 hours if clinically stable.
--- NOTE | 2017-04-16 19:28 | CARD ---
APPROVED REPORT EKG Measurement Heart [id number] <Conclusion> Normal sinus rhythm Voltage criteria for left ventricular hypertrophy Prolonged QT Abnormal ECG
--- NOTE | 2017-04-16 20:58 | PN ---
DATE: 04/16/2017 SUBJECTIVE: The patient is currently on *------*. She denies any chest pain. Abdominal pain has improved. PHYSICAL EXAMINATION VITAL SIGNS: Blood pressure 157/80, heart is 81, temperature 97, and respirations 18. HEENT: Normocephalic. CHEST: Clear. HEART: S1 and S2, regular. ABDOMEN: Mild epigastric tenderness. EXTREMITIES: No edema. LABORATORY DATA: SMA-7 today is within normal limit. Hemoglobin and hematocrit 15 and 37.9. White count is 11.4, platelet count 207,000. Urine drug screen is negative. Echocardiographic study revealed normal left ventricular size and systolic function, mild pulmonary hypertension. ASSESSMENT: 1. Status post alcohol intoxication. 2. Chest pain, myocardial infarction is ruled out. 3. Abdominal pain. RECOMMENDATIONS: Continue current p.r.n. IV Zofran. Continue IV Protonix, multivitamins and p.r.n. IV Ativan. Andrew Madison MD
[2017-04-17] MEDS ORDERED: Tetrahydrozoline Opht 0.05% Sol (15 ml) OD ONE (00:48)
--- NOTE | 2017-04-17 04:48 | CP.PCM.CON ---
<Earl Franco - Last Filed: 04/17/17 05:27> History of Present Illness - History of Present Illness History of Present Illness: ICU Consult for Dr. Aguilar 41 y/o M with PMH of chronic alcohol abuse, polysubstance abuse, and seizure disorder initially presented to the hospital on 04/15/17 for chest pain and abdominal pain. Pt found to be in acutely intoxicated with alcohol at this time , no other substances positive in UDS. Troponins were negative x3 and echocardiogram performed displayed an EF of 59%, mild pulmonary HTN, and mild tricuspid regurgitation. Abdomen/pelvis CT showed sigmoid diverticulosis with no evidence of diverticulitis. Pt was evaluated neurology for seizure disorder and was recommended to have EEG and start on Keppra. Head CT showed Chronic encephalomalacia of the frontal lobe. On 04/17/17, patient became increasing agitated and began to to hallucinate. Pt also displayed aggression to hospital staff. Pt is unable to answer questions appropriately. Medical Hx reviewed and prior history gathered from medical records. ROS unobtainable at this time due to patients condition. PMHx: Chronic alcohol abuse, polysubstance abuse, seizure disorder Surgical Hx: None FHx: Unknown SH: Tobacco 1 pack/day, heavy EtOH use (beer and whiskey), cocaine and marijuana use All: NKDA Medications: None Review of Systems - Review of Systems Systems not reviewed;Unavailable: Acuity of Condition Past Patient History - Infectious Disease Hx of Infectious Diseases: None - Tetanus Immunizations Tetanus Immunization: Unknown - Past Medical History & Family History Past Medical History?: Yes - Past Social History Smoking Status: Current Some Days Smoker - CARDIAC Hx Cardiac Disorders: No - PULMONARY Hx Respiratory Disorders: No - NEUROLOGICAL Hx Neurological Disorder: Yes Hx Dizziness: Yes Hx Seizures: Yes - HEENT Hx HEENT Problems: No - RENAL Hx Chronic Kidney Disease: No - ENDOCRINE/METABOLIC Hx Endocrine Disorders: No - HEMATOLOGICAL/ONCOLOGICAL Hx Blood Disorders: Yes Other/Comment: alcoholic hepatitis, rhabdomyalysis - INTEGUMENTARY Hx Dermatological Problems: No - MUSCULOSKELETAL/RHEUMATOLOGICAL Hx Musculoskeletal Disorders: Yes Hx Back Pain: Yes Hx Falls: Yes Hx Unsteady Gait: Yes Other/Comment: HX RECURRENT LEFT SHOULDER DISLOCATION - GASTROINTESTINAL Hx Gastrointestinal Disorders: No - GENITOURINARY/GYNECOLOGICAL Hx Genitourinary Disorders: No - PSYCHIATRIC Hx Psychophysiologic Disorder: Yes (ETOH ABUSE,DRINKS DAILY,COCAINE USE-SNIFFS) Hx Anxiety: Yes Hx Substance Use: Yes (COCAINE USE.) - SURGICAL HISTORY Other/Comment: ENDOSCOPY, COLONOSCOPY. admits to having a dislocated shoulder - ANESTHESIA Hx Anesthesia: Yes Hx Anesthesia Reactions: No Hx Malignant Hyperthermia: No Meds Allergies/Adverse Reactions: Allergies Allergy/AdvReac Type Severity Reaction Status Date / Time No Known Allergies Allergy Verified 04/15/17 15:01 - Medications Medications: Current Medications Acetaminophen (Tylenol 325mg Tab) 650 mg PO Q6H PRN PRN Reason: Pain, moderate (4-7) Last Admin: 04/17/17 01:12 Dose: 650 mg Chlordiazepoxide (Librium) 25 mg PO Q8 [facility] PRN Reason: Protocol Last Admin: 04/16/17 21:58 Dose: 25 mg Folic Acid (Folic Acid) 1 mg PO DAILY [facility] Last Admin: 04/16/17 10:12 Dose: Not Given Levetiracetam 1,000 mg/ Sodium (Chloride) 110 mls @ 460 mls/hr IV Q12 [facility] Last Admin: 04/16/17 21:08 Dose: 460 mls/hr Dexmedetomidine HCl (Precedex 4 Mcg/Ml (100 Ml)) 400 mcg in 100 mls @ 3.969 mls /hr IV .Q24H PRN; Protocol; 0.2 MCG/KG/HR PRN Reason: Agitation Lorazepam (Ativan) 2 mg IVP Q2 PRN; Protocol PRN Reason: Symptoms of alcohol withdrawl Multivitamins/Minerals (Therapeutic-M Tab) 1 tab PO 0800 [facility] Last Admin: 04/16/17 10:13 Dose: Not Given Nitroglycerin (Nitrostat Sl Tab) 0.4 mg SL Q5MIN PRN PRN Reason: Chest Pain Ondansetron HCl (Zofran Inj) 4 mg IVP Q6H PRN PRN Reason: Nausea/Vomiting Last Admin: 04/15/17 10:49 Dose: 4 mg Pantoprazole Sodium (Protonix Inj) 40 mg IVP DAILY [facility] Last Admin: 04/16/17 10:26 Dose: 40 mg Thiamine HCl (Vitamin B1 Tab) 50 mg PO DAILY [facility] Last Admin: 04/16/17 10:18 Dose: Not Given Physical Exam - Constitutional Appears: Non-toxic, Combative, Agitated - Head Exam Head Exam: ATRAUMATIC, NORMAL INSPECTION, NORMOCEPHALIC - Eye Exam Additional comments: Right eye with conjunctival injection - ENT Exam ENT Exam: Mucous Membranes Moist, Normal Exam - Respiratory Exam Respiratory Exam: Clear to Auscultation Bilateral, NORMAL BREATHING PATTERN - Cardiovascular Exam Cardiovascular Exam: Tachycardia, +S1, +S2 - GI/Abdominal Exam GI & Abdominal Exam: Normal Bowel Sounds, Soft. absent: Tenderness - Extremities Exam Extremities exam: Positive for: normal inspection. Negative for: calf tenderness, pedal edema - Neurological Exam Neurological exam: Alert Additional comments: Oriented to person, not time or place. Speech not coherent. - Psychiatric Exam Psychiatric exam: Agitated - Skin Skin Exam: Intact, Normal Color, Warm Results - Vital Signs Recent Vital Signs: Last Vital Signs Temp 98.2 F 04/17/17 04:30 Pulse 98 H 04/17/17 04:30 Resp 20 04/17/17 04:30 BP 149/96 H 04/17/17 04:30 Pulse Ox 98 04/17/17 04:30 - Labs Result Diagrams: 04/16/17 05:30 04/16/17 05:30 Labs: Laboratory Results - last 24 hr 04/16/17 04/16/17 04/16/17 05:30 05:30 05:30 WBC 11.4 H D RBC 4.35 Hgb 13.0 L Hct 37.9 L MCV 87.1 MCH 29.9 MCHC 34.3 RDW 12.4 Plt Count 207 MPV 8.9 Sodium 136 Potassium 3.6 Chloride 100 Carbon Dioxide 25 Anion Gap 15 BUN 13 Creatinine 0.8 Est GFR ( Amer) > 60 Est GFR (Non-Af Amer) > 60 Random Glucose 76 Calcium 8.6 Phosphorus Magnesium Total Bilirubin 1.1 AST 68 H ALT 42 Alkaline Phosphatase 96 Total Creatine Kinase 1099 H CK-MB (CK-2) 7.9 H CK-MB (CK-2) % 0.7 L Total Protein 6.7 Albumin 4.0 Globulin 2.7 Albumin/Globulin Ratio 1.5 Hepatitis A IgM Ab Negative Hep Bs Antigen Negative Hep B Core IgM Ab Negative Hepatitis C Antibody Negative 04/16/17 06:30 WBC RBC Hgb Hct MCV MCH MCHC RDW Plt Count MPV Sodium Potassium Chloride Carbon Dioxide Anion Gap BUN Creatinine Est GFR ( Amer) Est GFR (Non-Af Amer) Random Glucose Calcium Phosphorus 3.1 Magnesium 2.1 Total Bilirubin AST ALT Alkaline Phosphatase Total Creatine Kinase CK-MB (CK-2) CK-MB (CK-2) % Total Protein Albumin Globulin Albumin/Globulin Ratio Hepatitis A IgM Ab Hep Bs Antigen Hep B Core IgM Ab Hepatitis C Antibody Assessment & Plan - Assessment and Plan (Free Text) Plan: 41 y/o M with PMH of chronic alcohol abuse, polysubstance abuse, and seizure disorder presents with delirium tremens. Pt received multiple doses of Ativan overnight to no effect. Pt will be transferred from telemetry to ICU. Pt will be placed on precedex drip for sedation at this time. Pt will continue other current medical regimen at this time. Pt will be monitored closely for further deterioration in status. Neuro: Oriented to person only Sedated on precedex Continue Ativan prn Continue Keppra for seizure disorder Neurochecks q4h Cardio: Troponins negative x3 Hemodynamically stable Maintain MAP > 65 Pulm: Maintain 02 sat >90% Monitor for worsening respiratory status GI: PUD prophylaxis with Protonix Zofran for nausea Regular diet Nephro: CK elevated, will consider IVF Maintain euvolemia Replenish electrolytes as needed Endo: Maintain euglycemia Goal glucose between 140-180 Heme/ID Afebrile, improving leukocytosis Maintain normothermia Seen, reviewed, and discussed with attending [place] PGY-1 <Gavin Aguilar Q - Last Filed: 04/17/17 07:19> Meds - Medications Medications: Current Medications Acetaminophen (Tylenol 325mg Tab) 650 mg PO Q6H PRN PRN Reason: Pain, moderate (4-7) Last Admin: 04/17/17 01:12 Dose: 650 mg Chlordiazepoxide (Librium) 25 mg PO Q8 [facility] PRN Reason: Protocol Last Admin: 04/17/17 05:58 Dose: 25 mg Folic Acid (Folic Acid) 1 mg PO DAILY [facility] Last Admin: 04/16/17 10:12 Dose: Not Given Levetiracetam 1,000 mg/ Sodium (Chloride) 110 mls @ 460 mls/hr IV Q12 [facility] Last Admin: 04/16/17 21:08 Dose: 460 mls/hr Dexmedetomidine HCl (Precedex 4 Mcg/Ml (100 Ml)) 400 mcg in 100 mls @ 3.969 mls /hr IV .Q24H PRN; Protocol; 0.2 MCG/KG/HR PRN Reason: Agitation Last Admin: 04/17/17 05:59 Dose: 0.2 mcg/kg/hr, 3.969 mls/hr Lorazepam (Ativan) 2 mg IVP Q2 PRN; Protocol PRN Reason: Symptoms of alcohol withdrawl Multivitamins/Minerals (Therapeutic-M Tab) 1 tab PO 0800 [facility] Last Admin: 04/16/17 10:13 Dose: Not Given Nitroglycerin (Nitrostat Sl Tab) 0.4 mg SL Q5MIN PRN PRN Reason: Chest Pain Ondansetron HCl (Zofran Inj) 4 mg IVP Q6H PRN PRN Reason: Nausea/Vomiting Last Admin: 04/15/17 10:49 Dose: 4 mg Pantoprazole Sodium (Protonix Inj) 40 mg IVP DAILY [facility] Last Admin: 04/16/17 10:26 Dose: 40 mg Thiamine HCl (Vitamin B1 Tab) 50 mg PO DAILY [facility] Last Admin: 04/16/17 10:18 Dose: Not Given Results - Vital Signs Recent Vital Signs: Last Vital Signs Temp 98.2 F 04/17/17 05:15 Pulse 96 H 04/17/17 05:15 Resp 20 04/17/17 05:00 BP 154/91 H 04/17/17 05:15 Pulse Ox 98 04/17/17 04:30 - Labs Result Diagrams: 04/16/17 05:30 04/16/17 05:30 Labs: Laboratory Results - last 24 hr 04/16/17 05:30 Hepatitis A IgM Ab Negative Hep Bs Antigen Negative Hep B Core IgM Ab Negative Hepatitis C Antibody Negative Attending/Attestation - Attestation I have personally seen and examined this patient.: Yes I have fully participated in the care of the patient.: Yes I have reviewed all pertinent clinical information: Yes
--- NOTE | 2017-04-17 05:32 | CP.PCM.PN ---
Subjective - Date & Time of Evaluation Date of Evaluation: 04/17/17 Time of Evaluation: :19 - Subjective Subjective: Patient earlier when he was trying to leave before midnight, unsteady on the gait, confused where he wanted to go, [facility] was called before midnight, patient then agreed to stay and take sedatives after arrival of security personal. Ativan stat given, as well increased the dose and frequency. Communication made in [place] hop worker on the floor, as patient spoke only some part Kosovan. Around 2 am 2nd [facility] called when received 2 + 4 = 6mg of iv ativan when patient was agitated and was risk to the 1:1 staff, possey vest restraint and soft b/l wrist restraint put on. Patient got agitated again around 3:15 am while on restraint, removed his restraints before he could even get further ativan. [facility] was again called received 4 mg of iv ativan, 4 point restraints put at this time for patient and staff safety as patient was agitated. ICU eval called at this time for starting precidex as next level of sedation with continuous icu monitoring, till sedation is in effect then 4 point restraint could be removed. Patient accepted to ICU. VS, SPO2 had been stable all this time, patient not in cardio resp distress. Objective - Vital Signs/Intake and Output Vital Signs (last 24 hours): Temp Pulse Resp BP Pulse Ox 98.2 F 96 H 20 154/91 H 98 04/17/17 05:15 04/17/17 05:15 04/17/17 05:00 04/17/17 05:15 04/17/17 04:30 Intake and Output: 04/16/17 04/17/17 18:59 06:59 Intake Total 1680 Balance 1680 - Medications Medications: Current Medications Acetaminophen (Tylenol 325mg Tab) 650 mg PO Q6H PRN PRN Reason: Pain, moderate (4-7) Last Admin: 04/17/17 01:12 Dose: 650 mg Chlordiazepoxide (Librium) 25 mg PO Q8 [facility] PRN Reason: Protocol Last Admin: 04/16/17 21:58 Dose: 25 mg Folic Acid (Folic Acid) 1 mg PO DAILY [facility] Last Admin: 04/16/17 10:12 Dose: Not Given Levetiracetam 1,000 mg/ Sodium (Chloride) 110 mls @ 460 mls/hr IV Q12 [facility] Last Admin: 04/16/17 21:08 Dose: 460 mls/hr Dexmedetomidine HCl (Precedex 4 Mcg/Ml (100 Ml)) 400 mcg in 100 mls @ 3.969 mls /hr IV .Q24H PRN; Protocol; 0.2 MCG/KG/HR PRN Reason: Agitation Lorazepam (Ativan) 2 mg IVP Q2 PRN; Protocol PRN Reason: Symptoms of alcohol withdrawl Multivitamins/Minerals (Therapeutic-M Tab) 1 tab PO 0800 [facility] Last Admin: 04/16/17 10:13 Dose: Not Given Nitroglycerin (Nitrostat Sl Tab) 0.4 mg SL Q5MIN PRN PRN Reason: Chest Pain Ondansetron HCl (Zofran Inj) 4 mg IVP Q6H PRN PRN Reason: Nausea/Vomiting Last Admin: 04/15/17 10:49 Dose: 4 mg Pantoprazole Sodium (Protonix Inj) 40 mg IVP DAILY [facility] Last Admin: 04/16/17 10:26 Dose: 40 mg Thiamine HCl (Vitamin B1 Tab) 50 mg PO DAILY [facility] Last Admin: 04/16/17 10:18 Dose: Not Given - Labs Labs: 04/16/17 05:30 04/16/17 05:30 PT 10.9 Seconds (9.9-11.8) 04/15/17 01:46 INR 1.01 (0.93-1.08) 04/15/17 01:46 APTT 30.2 Seconds (23.7-30.8) 04/15/17 01:46
[2017-04-17] MEDS: Dexmedetomidine HCl 4mcg/ml 400 MCG/100 ML BOTTLE IV PRN ×2 (05:59→22:29)
[2017-04-17 07:18] LABS: MEAN CELL VOLUME 86.4 fL (80.0-105.0); MEAN CORPUSCULAR HGB CONC 34.8 g/dl (31.0-37.0); MEAN PLATELET VOLUME 9.2 fl (7.0-11.0); RBC 4.33 10^6/uL (3.5-6.1); RED CELL DISTRIBUTION WIDTH 12.1 % (11.5-14.5); WHITE BLOOD COUNT 9.3 10^3/ul (4.5-11.0)
[2017-04-17 07:29] LABS: ALB/GLOB RATIO 1.4 (1.1-1.8); ALBUMIN 4.3 g/dL (3.0-4.8); ALT/SGPT 39 U/L (7-56); AST/SGOT 58 U/L (15-59); BLOOD UREA NITROGEN 9 mg/dL (7-21); GFR AFRICAN-AMERICAN > 60; GFR NON-AFRICAN AMERICAN > 60
[2017-04-17] MEDS: levETIRAcetam 1,000 MG in Sodium Chloride 0.9% 100 ML IV SCH ×2 (10:22→21:48)
[2017-04-17] MEDS: Sodium Chloride 0.9% 1,000 ML IV SCH ×2 (10:23→20:31)
--- NOTE | 2017-04-17 12:23 | CARD ---
APPROVED REPORT EKG Measurement Heart [id number] <Conclusion> Normal sinus rhythm Voltage criteria for left ventricular hypertrophy Abnormal ECG
--- NOTE | 2017-04-17 12:40 | CP.PCM.PN ---
<GlenWanrolando - Last Filed: 04/17/17 12:35> Subjective - Date & Time of Evaluation Date of Evaluation: 04/17/17 Time of Evaluation: 12:35 - Subjective Subjective: Patient resting comfortably. Precedix drip on, sitter present. Objective - Vital Signs/Intake and Output Vital Signs (last 24 hours): Temp Pulse Resp BP Pulse Ox 98.4 F 69 18 120/69 98 04/17/17 06:06 04/17/17 07:28 04/17/17 07:28 04/17/17 06:06 04/17/17 04:30 Intake and Output: 04/17/17 04/17/17 06:59 18:59 Intake Total 1680 Balance 1680 - Medications Medications: Current Medications Acetaminophen (Tylenol 325mg Tab) 650 mg PO Q6H PRN PRN Reason: Pain, moderate (4-7) Last Admin: 04/17/17 01:12 Dose: 650 mg Chlordiazepoxide (Librium) 25 mg PO Q8 [facility] PRN Reason: Protocol Last Admin: 04/17/17 05:58 Dose: 25 mg Folic Acid (Folic Acid) 1 mg PO DAILY [facility] Last Admin: 04/16/17 10:12 Dose: Not Given Levetiracetam 1,000 mg/ Sodium (Chloride) 110 mls @ 460 mls/hr IV Q12 [facility] Last Admin: 04/17/17 10:22 Dose: 460 mls/hr Dexmedetomidine HCl (Precedex 4 Mcg/Ml (100 Ml)) 400 mcg in 100 mls @ 3.969 mls /hr IV .Q24H PRN; Protocol; 0.2 MCG/KG/HR PRN Reason: Agitation Last Admin: 04/17/17 05:59 Dose: 0.2 mcg/kg/hr, 3.969 mls/hr Sodium Chloride (Sodium Chloride 0.9%) 1,000 mls @ 125 mls/hr IV .Q8H [facility] Last Admin: 04/17/17 10:23 Dose: 125 mls/hr Lorazepam (Ativan) 2 mg IVP Q2 PRN; Protocol PRN Reason: Symptoms of alcohol withdrawl Multivitamins/Minerals (Therapeutic-M Tab) 1 tab PO 0800 [facility] Last Admin: 04/16/17 10:13 Dose: Not Given Nitroglycerin (Nitrostat Sl Tab) 0.4 mg SL Q5MIN PRN PRN Reason: Chest Pain Ondansetron HCl (Zofran Inj) 4 mg IVP Q6H PRN PRN Reason: Nausea/Vomiting Last Admin: 04/15/17 10:49 Dose: 4 mg Pantoprazole Sodium (Protonix Inj) 40 mg IVP DAILY [facility] Last Admin: 04/17/17 10:21 Dose: 40 mg Thiamine HCl (Vitamin B1 Tab) 50 mg PO DAILY [facility] Last Admin: 04/16/17 10:18 Dose: Not Given - Labs Labs: 04/17/17 06:50 04/17/17 06:50 PT 10.9 Seconds (9.9-11.8) 04/15/17 01:46 INR 1.01 (0.93-1.08) 04/15/17 01:46 APTT 30.2 Seconds (23.7-30.8) 04/15/17 01:46 - Constitutional Appears: Non-toxic, No Acute Distress - Head Exam Head Exam: ATRAUMATIC, NORMOCEPHALIC - Eye Exam Eye Exam: Conjunctival injection (right eye ), Normal appearance. absent: Scleral icterus - ENT Exam ENT Exam: Mucous Membranes Moist - Neck Exam Neck Exam: Normal Inspection - Respiratory Exam Respiratory Exam: Clear to Ausculation Bilateral, NORMAL BREATHING PATTERN. absent: Accessory Muscle Use, Respiratory Distress - Cardiovascular Exam Cardiovascular Exam: RRR, +S1, +S2. absent: JVD - GI/Abdominal Exam GI & Abdominal Exam: Soft. absent: Rebound - Rectal Exam Rectal Exam: Deferred - Neurological Exam Additional comments: He is arousable to firm touch. - Psychiatric Exam Additional comments: unable to comment, patient is mildly sedated Assessment and Plan - Assessment and Plan (Free Text) Assessment: 41 yo white male with a history seizures, substance abuse who was admitted to ICU for alcohol withdrawal refractory to benzodiazepine administration. Plan: Neuro: Sedated on Precedex, weaning patient, with conversion to PO benzodiazepine. Cardio: Troponins negative x3. Hemodynamically stable.Maintain MAP > 65 Pulmonolgy: Maintain 02 sat >90%. Monitor for worsening respiratory status GI: PUD prophylaxis with Protonix. Zofran for nausea. Regular diet Nephro: CK elevated, will consider IVF. Maintain euvolemia. Replenish electrolytes as needed. Endo:Maintain euglycemia. Goal glucose between 140-180 Heme/ID: Afebrile, improving leukocytosis. Maintain normothermia <Kana Casper MD H - Last Filed: 04/17/17 14:00> Objective - Vital Signs/Intake and Output Vital Signs (last 24 hours): Temp Pulse Resp BP Pulse Ox 98.4 F 69 18 120/69 98 04/17/17 06:06 04/17/17 07:28 04/17/17 07:28 04/17/17 06:06 04/17/17 04:30 Intake and Output: 04/17/17 04/17/17 06:59 18:59 Intake Total 1680 Balance 1680 - Medications Medications: Current Medications Acetaminophen (Tylenol 325mg Tab) 650 mg PO Q6H PRN PRN Reason: Pain, moderate (4-7) Last Admin: 04/17/17 01:12 Dose: 650 mg Chlordiazepoxide (Librium) 25 mg PO Q8 [facility] PRN Reason: Protocol Last Admin: 04/17/17 05:58 Dose: 25 mg Folic Acid (Folic Acid) 1 mg PO DAILY [facility] Last Admin: 04/16/17 10:12 Dose: Not Given Levetiracetam 1,000 mg/ Sodium (Chloride) 110 mls @ 460 mls/hr IV Q12 [facility] Last Admin: 04/17/17 10:22 Dose: 460 mls/hr Dexmedetomidine HCl (Precedex 4 Mcg/Ml (100 Ml)) 400 mcg in 100 mls @ 3.969 mls /hr IV .Q24H PRN; Protocol; 0.2 MCG/KG/HR PRN Reason: Agitation Last Admin: 04/17/17 05:59 Dose: 0.2 mcg/kg/hr, 3.969 mls/hr Sodium Chloride (Sodium Chloride 0.9%) 1,000 mls @ 125 mls/hr IV .Q8H [facility] Last Admin: 04/17/17 10:23 Dose: 125 mls/hr Lorazepam (Ativan) 2 mg IVP Q2 PRN; Protocol PRN Reason: Symptoms of alcohol withdrawl Multivitamins/Minerals (Therapeutic-M Tab) 1 tab PO 0800 [facility] Last Admin: 04/16/17 10:13 Dose: Not Given Nitroglycerin (Nitrostat Sl Tab) 0.4 mg SL Q5MIN PRN PRN Reason: Chest Pain Ondansetron HCl (Zofran Inj) 4 mg IVP Q6H PRN PRN Reason: Nausea/Vomiting Last Admin: 04/15/17 10:49 Dose: 4 mg Pantoprazole Sodium (Protonix Inj) 40 mg IVP DAILY [facility] Last Admin: 04/17/17 10:21 Dose: 40 mg Thiamine HCl (Vitamin B1 Tab) 50 mg PO DAILY [facility] Last Admin: 04/16/17 10:18 Dose: Not Given - Labs Labs: 04/17/17 06:50 04/17/17 06:50 PT 10.9 Seconds (9.9-11.8) 04/15/17 01:46 INR 1.01 (0.93-1.08) 04/15/17 01:46 APTT 30.2 Seconds (23.7-30.8) 04/15/17 01:46 Attending/Attestation - Attestation I have personally seen and examined this patient.: Yes I have fully participated in the care of the patient.: Yes I have reviewed all pertinent clinical information, including history, physical exam and plan: Yes Notes (Text): 04/17/17 13:57 41 y/o M w/ DT alcohol withdrawl. Overnight had increasing needs of ativan and was tx to the icu for Precedex. Pt currently is arousable but calm. Iv hydration , thiamine, folate MV . Diet to be started once awake and calm. No currently symptoms of encephalopathy , hemetemesis etc. dvt P PPI cc time 55 min
--- NOTE | 2017-04-17 16:23 | PN ---
DATE: 04/15/2017 SUBJECTIVE: The patient is transferred to ICU after he was found diaphoretic on the floor. He is in full-blown *------* no reported ventricular arrhythmia or hypertension. PHYSICAL EXAMINATION: VITAL SIGNS: Blood pressure 179/84, heart rate 98, temperature 98.2. HEENT: Normocephalic. CHEST: Clear. HEART: S1 and S2, regular. EXTREMITIES: No edema. LABORATORY DATA: Hemoglobin and hematocrit 13 and 37.4. White count and platelet counts are within limits. His SMA-7 is within normal limit. Today's EKG revealed sinus rhythm at the rate of 67 and poor R wave progression pattern. ASSESSMENT: 1. Status post alcohol intoxication. 2. Delirium tremens. RECOMMENDATIONS: Continue current IV Ativan p.r.n. as well as Precedex infusion, and oral Librium p.r.n. Andrew Madison MD
--- NOTE | 2017-04-17 18:47 | CP.PCM.PN ---
Subjective - Date & Time of Evaluation Date of Evaluation: 04/17/17 Time of Evaluation: 10:00 - Subjective Subjective: Disease Course: Pt is a 41 yo M with a PMHx of chronic alcohol and substance abuse presents with a cc of chest pain. Pt admits to heavy alcohol use (beer and whiskey), cocaine, and marijuana use over the last few days. During this time, he reports non-localized, constant chest pain and pressure. Pt also admits to nausea and non-bilious hematemesis x1. Pt is a poor historian as he could not remember many of the events over the last day. Pt has been admitted several times in the past for similar occurrences. Patient had a rapid response called on him yesterday, 04/15/2017, 2/2 a fall; patient was given Ativan and felt better. Pt s&e at bedside today, 04/15/2017. He is feeling less nauseas, less confused , but is tired. Last night he was transferred to ICU 2/2 agitation. He is on a precedex dri 4. GI/DVT PPx -Pepcid -SCDs Pt was seen and discussed in detail with Dr. Beach Objective - Vital Signs/Intake and Output Vital Signs (last 24 hours): Temp Pulse Resp BP Pulse Ox 98.4 F 58 L 18 120/69 98 04/17/17 06:06 04/17/17 18:00 04/17/17 07:28 04/17/17 06:06 04/17/17 18:00 Intake and Output: 04/17/17 04/17/17 06:59 18:59 Intake Total 1680 Balance 1680 - Medications Medications: Current Medications Acetaminophen (Tylenol 325mg Tab) 650 mg PO Q6H PRN PRN Reason: Pain, moderate (4-7) Last Admin: 04/17/17 01:12 Dose: 650 mg Chlordiazepoxide (Librium) 25 mg PO Q8 [facility] PRN Reason: Protocol Last Admin: 04/17/17 05:58 Dose: 25 mg Folic Acid (Folic Acid) 1 mg PO DAILY [facility] Last Admin: 04/16/17 10:12 Dose: Not Given Levetiracetam 1,000 mg/ Sodium (Chloride) 110 mls @ 460 mls/hr IV Q12 [facility] Last Admin: 04/17/17 10:22 Dose: 460 mls/hr Dexmedetomidine HCl (Precedex 4 Mcg/Ml (100 Ml)) 400 mcg in 100 mls @ 3.969 mls /hr IV .Q24H PRN; Protocol; 0.2 MCG/KG/HR PRN Reason: Agitation Last Admin: 04/17/17 05:59 Dose: 0.2 mcg/kg/hr, 3.969 mls/hr Sodium Chloride (Sodium Chloride 0.9%) 1,000 mls @ 125 mls/hr IV .Q8H [facility] Last Admin: 04/17/17 10:23 Dose: 125 mls/hr Lorazepam (Ativan) 2 mg IVP Q2 PRN; Protocol PRN Reason: Symptoms of alcohol withdrawl Multivitamins/Minerals (Therapeutic-M Tab) 1 tab PO 0800 [facility] Last Admin: 04/16/17 10:13 Dose: Not Given Nitroglycerin (Nitrostat Sl Tab) 0.4 mg SL Q5MIN PRN PRN Reason: Chest Pain Ondansetron HCl (Zofran Inj) 4 mg IVP Q6H PRN PRN Reason: Nausea/Vomiting Last Admin: 04/15/17 10:49 Dose: 4 mg Pantoprazole Sodium (Protonix Inj) 40 mg IVP DAILY [facility] Last Admin: 04/17/17 10:21 Dose: 40 mg Thiamine HCl (Vitamin B1 Tab) 50 mg PO DAILY [facility] Last Admin: 04/16/17 10:18 Dose: Not Given - Labs Labs: 04/17/17 06:50 04/17/17 06:50 PT 10.9 Seconds (9.9-11.8) 04/15/17 01:46 INR 1.01 (0.93-1.08) 04/15/17 01:46 APTT 30.2 Seconds (23.7-30.8) 04/15/17 01:46 - Additional Findings Additional findings: Constitutional: +drowsy; a&o x 4, nad Head and Neck: neck supple, no jvd, trachea midline, carotid midline, no cervical/head mass Eyes: katie, nonicteric sclera, eom intact ENT: auditory acuity grossly intact, throat not congested, no nasal deformity Cardio: rrr, no m/r/g, no carotid bruit, nml s1, s2 Pulm: no accessory muscle use, equal nml breath sounds bilaterally, ctab Abd: s/nt/nd, nbs x 4 q, no palpable masses Derm: no rashes, no ulcers, no lesions Extr: no edema, no cyanosis, no calf tenderness, no lesions, no varicosities Neuro: cn II-XII grossly intact, ue and le 5/5 muscle strength~bilaterally, no los ue, le bilaterally and core Assessment and Plan - Assessment and Plan (Free Text) Assessment: 41 yo M with a PMHx of chronic alcohol and substance abuse will be admitted for evaluation and treatment for alcohol withdrawal and chest pain. 1. Chest pain r/o acs -Cardiology consulted -Tropes, EKG, TSH all normal -Echo: LV normal, VEF normal; mild TR, mild pulm HTN 2. Alcohol withdrawal -CIWA protocol -Ativan 1q2 prn -Librium -Folic acid, thiamine, multivitamin -[employer] on alcohol risks and cessation 3. Abdominal pain -GI consulted -F/u Lipase -F/u CT abdomen -Monitor LFTs -Zofran for nausea
[2017-04-18] MEDS: Sodium Chloride 0.9% 1,000 ML IV SCH ×3 (04:14→19:44)
--- NOTE | 2017-04-18 06:54 | PN ---
DATE: 04/18/2017 SUBJECTIVE: I saw this patient this morning. This is a 41-year-old white male admitted with complaints of chest tightness and alcohol intoxication, nausea and vomiting. Evaluation at bedside shows currently in the ICU. The patient appears somewhat improved overall from the day of admission. The patient is eating. He has no complaints of hematemesis or rectal bleeding. PHYSICAL EXAMINATION: Noncontributory at the bedside in the ICU. With review of the current orders and respective progress and also respective consultants, I have no further suggestions at this point. The patient to be followed up by the hospice. David Ngo DO
--- NOTE | 2017-04-18 07:02 | CP.PCM.PN ---
<Carrie Carroll - Last Filed: 04/18/17 15:17> Subjective - Date & Time of Evaluation Date of Evaluation: 04/18/17 Time of Evaluation: 06:58 - Subjective Subjective: Patient seen and examined at bedside. Nurse reports overnight that he ate dinner , exhibited no violent behavior, voided on his own. His CIWA score is 3 now. Librium administered 10:00 PM and 6:00 AM, on 0.2 mcg/kg/hr. Objective - Vital Signs/Intake and Output Vital Signs (last 24 hours): Temp Pulse Resp BP Pulse Ox 97.3 F L 53 L 18 100/67 100 04/18/17 00:01 04/18/17 01:40 04/18/17 01:40 04/18/17 01:00 04/18/17 01:40 Intake and Output: 04/17/17 04/18/17 18:59 06:59 Intake Total 1740 2015 Output Total 500 1500 Balance 1240 515 - Medications Medications: Current Medications Acetaminophen (Tylenol 325mg Tab) 650 mg PO Q6H PRN PRN Reason: Pain, moderate (4-7) Last Admin: 04/17/17 01:12 Dose: 650 mg Chlordiazepoxide (Librium) 25 mg PO Q8 [facility] PRN Reason: Protocol Last Admin: 04/18/17 05:37 Dose: 25 mg Folic Acid (Folic Acid) 1 mg PO DAILY [facility] Last Admin: 04/17/17 18:57 Dose: Not Given Levetiracetam 1,000 mg/ Sodium (Chloride) 110 mls @ 460 mls/hr IV Q12 [facility] Last Admin: 04/17/17 21:48 Dose: 460 mls/hr Dexmedetomidine HCl (Precedex 4 Mcg/Ml (100 Ml)) 400 mcg in 100 mls @ 3.969 mls /hr IV .Q24H PRN; Protocol; 0.2 MCG/KG/HR PRN Reason: Agitation Last Admin: 04/17/17 22:29 Dose: 0.01 mcg/kg/hr, 0.3 mls/hr Sodium Chloride (Sodium Chloride 0.9%) 1,000 mls @ 125 mls/hr IV .Q8H [facility] Last Admin: 04/18/17 04:14 Dose: 125 mls/hr Lorazepam (Ativan) 2 mg IVP Q2 PRN; Protocol PRN Reason: Symptoms of alcohol withdrawl Multivitamins/Minerals (Therapeutic-M Tab) 1 tab PO 0800 [facility] Last Admin: 04/16/17 10:13 Dose: Not Given Nitroglycerin (Nitrostat Sl Tab) 0.4 mg SL Q5MIN PRN PRN Reason: Chest Pain Ondansetron HCl (Zofran Inj) 4 mg IVP Q6H PRN PRN Reason: Nausea/Vomiting Last Admin: 04/15/17 10:49 Dose: 4 mg Pantoprazole Sodium (Protonix Inj) 40 mg IVP DAILY [facility] Last Admin: 04/17/17 10:21 Dose: 40 mg Thiamine HCl (Vitamin B1 Tab) 50 mg PO DAILY [facility] Last Admin: 04/17/17 18:56 Dose: Not Given - Labs Labs: 04/17/17 06:50 04/17/17 06:50 PT 10.9 Seconds (9.9-11.8) 04/15/17 01:46 INR 1.01 (0.93-1.08) 04/15/17 01:46 APTT 30.2 Seconds (23.7-30.8) 04/15/17 01:46 - Constitutional Appears: Well, Non-toxic, No Acute Distress - Head Exam Head Exam: ATRAUMATIC, NORMOCEPHALIC - Eye Exam Eye Exam: Conjunctival injection, EOMI Additional comments: right eye - ENT Exam ENT Exam: Mucous Membranes Moist, Normal Oropharynx - Neck Exam Neck Exam: Normal Inspection - Respiratory Exam Respiratory Exam: Clear to Ausculation Bilateral, NORMAL BREATHING PATTERN. absent: Rales, Wheezes - Cardiovascular Exam Cardiovascular Exam: REGULAR RHYTHM, +S1, +S2 - GI/Abdominal Exam GI & Abdominal Exam: Soft, Normal Bowel Sounds - Rectal Exam Rectal Exam: Deferred Assessment and Plan - Assessment and Plan (Free Text) Assessment: 41 yo white male with a history seizures, substance abuse who was admitted to ICU for alcohol withdrawal refractory to benzodiazepine administration. Plan: Neuro: Patient is off Precedex, doing fine, is taking PO benzodiazepines. Cardio: Troponins negative x3. Hemodynamically stable. Maintain MAP > 65 Pulmonolgy: Maintain 02 sat >90%. Monitor for worsening respiratory status GI: PUD prophylaxis with Protonix. Zofran for nausea. Regular diet Nephro: CK elevated, will consider IVF. Maintain euvolemia. Replenish electrolytes as needed. Endo:Maintain euglycemia. Goal glucose between 140-180 Heme/ID: Afebrile, improving leukocytosis. Maintain normothermia Plan: PO benzodiazepine, CIWA is 0-1 at this time <Kana Casper MD H - Last Filed: 04/18/17 16:59> Objective - Vital Signs/Intake and Output Vital Signs (last 24 hours): Temp Pulse Resp BP Pulse Ox 97.5 F L 81 18 100/67 100 04/18/17 12:00 04/18/17 14:00 04/18/17 01:40 04/18/17 01:00 04/18/17 01:40 Intake and Output: 04/18/17 04/18/17 06:59 18:59 Intake Total 2014 Output Total 1500 Balance 515 - Medications Medications: Current Medications Acetaminophen (Tylenol 325mg Tab) 650 mg PO Q6H PRN PRN Reason: Pain, moderate (4-7) Last Admin: 04/17/17 01:12 Dose: 650 mg Artificial Tears (Artificial Tears) 0 ml OU DAILY PRN PRN Reason: Dry eyes Chlordiazepoxide (Librium) 25 mg PO Q8 [facility] PRN Reason: Protocol Last Admin: 04/18/17 13:25 Dose: 25 mg Folic Acid (Folic Acid) 1 mg PO DAILY [facility] Last Admin: 04/18/17 09:35 Dose: 1 mg Levetiracetam 1,000 mg/ Sodium (Chloride) 110 mls @ 460 mls/hr IV Q12 [facility] Last Admin: 04/18/17 09:35 Dose: 460 mls/hr Dexmedetomidine HCl (Precedex 4 Mcg/Ml (100 Ml)) 400 mcg in 100 mls @ 3.969 mls /hr IV .Q24H PRN; Protocol; 0.2 MCG/KG/HR PRN Reason: Agitation Last Admin: 04/17/17 22:29 Dose: 0.01 mcg/kg/hr, 0.3 mls/hr Sodium Chloride (Sodium Chloride 0.9%) 1,000 mls @ 125 mls/hr IV .Q8H [facility] Last Admin: 04/18/17 11:59 Dose: 125 mls/hr Lorazepam (Ativan) 2 mg IVP Q2 PRN; Protocol PRN Reason: Symptoms of alcohol withdrawl Multivitamins/Minerals (Therapeutic-M Tab) 1 tab PO 0800 [facility] Last Admin: 04/18/17 09:35 Dose: 1 tab Nitroglycerin (Nitrostat Sl Tab) 0.4 mg SL Q5MIN PRN PRN Reason: Chest Pain Ondansetron HCl (Zofran Inj) 4 mg IVP Q6H PRN PRN Reason: Nausea/Vomiting Last Admin: 04/15/17 10:49 Dose: 4 mg Pantoprazole Sodium (Protonix Inj) 40 mg IVP DAILY [facility] Last Admin: 04/18/17 09:34 Dose: 40 mg Thiamine HCl (Vitamin B1 Tab) 50 mg PO DAILY [facility] Last Admin: 04/18/17 12:00 Dose: 50 mg - Labs Labs: 04/18/17 07:15 04/18/17 07:15 PT 10.9 Seconds (9.9-11.8) 04/15/17 01:46 INR 1.01 (0.93-1.08) 04/15/17 01:46 APTT 30.2 Seconds (23.7-30.8) 04/15/17 01:46 Attending/Attestation - Attestation I have personally seen and examined this patient.: Yes I have fully participated in the care of the patient.: Yes I have reviewed all pertinent clinical information, including history, physical exam and plan: Yes Notes (Text): 04/18/17 16:58 41 y/o M w/ alcohol withdrawl Placed on Precedex drip, transitioned off to prn Ativan and Librium p.o IV fluids continued, MV, Folate and thiamine given. Replete all electrolytes PT/OT Can tx to telemetry if pt is off Precedex and not escalating doses of ativan. dvt P cc time 65 min
[2017-04-18 07:42] LABS: ALB/GLOB RATIO 1.3 (1.1-1.8); ALBUMIN 3.5 g/dL (3.0-4.8); ALT/SGPT 35 U/L (7-56); AST/SGOT 38 U/L (15-59); BLOOD UREA NITROGEN 8 mg/dL (7-21); CALCIUM 8.5 mg/dL (8.4-10.5); GFR AFRICAN-AMERICAN > 60; GFR NON-AFRICAN AMERICAN > 60
[2017-04-18 07:55] LABS: HEMOGLOBIN 12.2 gm/dL (14.0-18.0); MEAN CELL VOLUME 88.6 fL (80.0-105.0); MEAN CORPUSCULAR HEMOGLOBIN 30.2 pg (25.0-35.0); MEAN CORPUSCULAR HGB CONC 34.1 g/dl (31.0-37.0); MEAN PLATELET VOLUME 9.7 fl (7.0-11.0); RBC 4.04 10^6/uL (3.5-6.1); RED CELL DISTRIBUTION WIDTH 12.2 % (11.5-14.5); WHITE BLOOD COUNT 8.1 10^3/ul (4.5-11.0)
[2017-04-18 08:14] LABS: CK-MB 2.1 ng/mL (0.0-3.6)
[2017-04-18] MEDS: levETIRAcetam 1,000 MG in Sodium Chloride 0.9% 100 ML IV SCH ×2 (09:35→21:32)
[2017-04-18] MEDS: Multivitamin With Minerals Tab PO SCH (09:35)
--- NOTE | 2017-04-18 17:03 | CP.PCM.PN ---
Subjective - Date & Time of Evaluation Date of Evaluation: 04/18/17 Time of Evaluation: 08:00 - Subjective Subjective: Pt is a 41 yo M with a PMHx of chronic alcohol and substance abuse presents with a cc of chest pain. Pt admits to heavy alcohol use (beer and whiskey), cocaine, and marijuana use over the last few days. During this time, he reports non-localized, constant chest pain and pressure. Pt also admits to nausea and non-bilious hematemesis x1. Pt is a poor historian as he could not remember many of the events over the last day. Pt has been admitted several times in the past for similar occurrences. Patient had a rapid response called on him yesterday, 04/15/2017, / a fall; patient was given Ativan and felt better. Pt s&e at bedside today, 04/18/2017. He is feeling less nauseas, less confused , but is tired. He is on a precedex drip, but his librium was decreased to 10 q 8 today. Objective - Vital Signs/Intake and Output Vital Signs (last 24 hours): Temp Pulse Resp BP Pulse Ox 97.5 F L 81 18 100/67 100 04/18/17 12:00 04/18/17 14:00 04/18/17 01:40 04/18/17 01:00 04/18/17 01:40 Intake and Output: 04/18/17 04/18/17 06:59 18:59 Intake Total 2014 Output Total 1500 Balance 515 - Medications Medications: Current Medications Acetaminophen (Tylenol 325mg Tab) 650 mg PO Q6H PRN PRN Reason: Pain, moderate (4-7) Last Admin: 04/17/17 01:12 Dose: 650 mg Artificial Tears (Artificial Tears) 0 ml OU DAILY PRN PRN Reason: Dry eyes Chlordiazepoxide (Librium) 25 mg PO Q8 [facility] PRN Reason: Protocol Last Admin: 04/18/17 13:25 Dose: 25 mg Folic Acid (Folic Acid) 1 mg PO DAILY [facility] Last Admin: 04/18/17 09:35 Dose: 1 mg Levetiracetam 1,000 mg/ Sodium (Chloride) 110 mls @ 460 mls/hr IV Q12 [facility] Last Admin: 04/18/17 09:35 Dose: 460 mls/hr Dexmedetomidine HCl (Precedex 4 Mcg/Ml (100 Ml)) 400 mcg in 100 mls @ 3.969 mls /hr IV .Q24H PRN; Protocol; 0.2 MCG/KG/HR PRN Reason: Agitation Last Admin: 04/17/17 22:29 Dose: 0.01 mcg/kg/hr, 0.3 mls/hr Sodium Chloride (Sodium Chloride 0.9%) 1,000 mls @ 125 mls/hr IV .Q8H [facility] Last Admin: 04/18/17 11:59 Dose: 125 mls/hr Lorazepam (Ativan) 2 mg IVP Q2 PRN; Protocol PRN Reason: Symptoms of alcohol withdrawl Multivitamins/Minerals (Therapeutic-M Tab) 1 tab PO 0800 [facility] Last Admin: 04/18/17 09:35 Dose: 1 tab Nitroglycerin (Nitrostat Sl Tab) 0.4 mg SL Q5MIN PRN PRN Reason: Chest Pain Ondansetron HCl (Zofran Inj) 4 mg IVP Q6H PRN PRN Reason: Nausea/Vomiting Last Admin: 04/15/17 10:49 Dose: 4 mg Pantoprazole Sodium (Protonix Inj) 40 mg IVP DAILY [facility] Last Admin: 04/18/17 09:34 Dose: 40 mg Thiamine HCl (Vitamin B1 Tab) 50 mg PO DAILY [facility] Last Admin: 04/18/17 12:00 Dose: 50 mg - Labs Labs: 04/18/17 07:15 04/18/17 07:15 PT 10.9 Seconds (9.9-11.8) 04/15/17 01:46 INR 1.01 (0.93-1.08) 04/15/17 01:46 APTT 30.2 Seconds (23.7-30.8) 04/15/17 01:46 - Additional Findings Additional findings: Phys Exam Constitutional: +drowsy; a&o x 4, nad Head and Neck: neck supple, no jvd, trachea midline, carotid midline, no cervical/head mass Eyes: katie, nonicteric sclera, eom intact ENT: auditory acuity grossly intact, throat not congested, no nasal deformity Cardio: rrr, no m/r/g, no carotid bruit, nml s1, s2 Pulm: no accessory muscle use, equal nml breath sounds bilaterally, ctab Abd: s/nt/nd, nbs x 4 q, no palpable masses Derm: no rashes, no ulcers, no lesions Extr: no edema, no cyanosis, no calf tenderness, no lesions, no varicosities Neuro: cn II-XII grossly intact, ue and le 5/5 muscle strength~bilaterally, no los ue, le bilaterally and core Assessment and Plan - Assessment and Plan (Free Text) Assessment: A/P 41 yo M with a PMHx of chronic alcohol and substance abuse will be admitted for evaluation and treatment for alcohol withdrawal and chest pain. 1. Chest pain r/o acs - resolved -Cardiology consulted -Tropes, EKG, TSH all normal -Echo: LV normal, VEF normal; mild TR, mild pulm HTN 2. Alcohol withdrawal -CIWA protocol: Current score 3 -Ativan 1q2 prn -Librium reduced to 10 mg -Folic acid, thiamine, multivitamin -[employer] on alcohol risks and cessation 3. Abdominal pain -GI consulted -F/u Lipase -F/u CT abdomen -Monitor LFTs -Zofran for nausea 4. GI/DVT PPHXS -Protonix/SCD Pt d/w Dr. Chandler
[2017-04-18] MEDS: Dexmedetomidine HCl 4mcg/ml 400 MCG/100 ML BOTTLE IV PRN (21:00)
[2017-04-19] MEDS ORDERED: DiphenhydrAMINE 50 mg/ml Inj IVP ONE (00:21)
[2017-04-19] MEDS: Sodium Chloride 0.9% 1,000 ML IV SCH ×2 (03:15→20:52)
[2017-04-19] MEDS: Pantoprazole 40 mg EC Tab PO SCH (06:25)
[2017-04-19 07:12] LABS: ALT/SGPT 34 U/L (7-56); AST/SGOT 33 U/L (15-59); BLOOD UREA NITROGEN 12 mg/dL (7-21); CALCIUM 8.7 mg/dL (8.4-10.5); GFR AFRICAN-AMERICAN > 60; GFR NON-AFRICAN AMERICAN > 60
[2017-04-19 07:20] LABS: ALB/GLOB RATIO 1.4 (1.1-1.8); ALBUMIN 3.7 g/dL (3.0-4.8)
[2017-04-19 07:45] LABS: HEMOGLOBIN 12.3 gm/dL (14.0-18.0); MEAN CELL VOLUME 86.8 fL (80.0-105.0); MEAN CORPUSCULAR HEMOGLOBIN 30.1 pg (25.0-35.0); MEAN CORPUSCULAR HGB CONC 34.6 g/dl (31.0-37.0); MEAN PLATELET VOLUME 9.5 fl (7.0-11.0); RBC 4.09 10^6/uL (3.5-6.1); RED CELL DISTRIBUTION WIDTH 12.3 % (11.5-14.5); WHITE BLOOD COUNT 7.9 10^3/ul (4.5-11.0)
[2017-04-19] MEDS: Multivitamin With Minerals Tab PO SCH (09:48)
[2017-04-19] MEDS: levETIRAcetam 1,000 MG in Sodium Chloride 0.9% 100 ML IV SCH ×2 (09:48→21:21)
--- NOTE | 2017-04-19 09:59 | CP.PCM.PN ---
Subjective - Date & Time of Evaluation Date of Evaluation: 04/19/17 Time of Evaluation: 09:56 - Subjective Subjective: Patient is resting comfortably. Precedex was stopped last night at midnight. Patient has a CIWA score of 2 per nurse. Objective - Vital Signs/Intake and Output Vital Signs (last 24 hours): Temp Pulse Resp BP Pulse Ox 98.3 F 64 14 110/69 100 04/19/17 06:00 04/19/17 06:28 04/19/17 06:28 04/19/17 03:00 04/19/17 03:00 Intake and Output: 04/19/17 04/19/17 06:59 18:59 Intake Total 2452 Output Total 1100 Balance 1352 - Medications Medications: Current Medications Acetaminophen (Tylenol 325mg Tab) 650 mg PO Q6H PRN PRN Reason: Pain, moderate (4-7) Last Admin: 04/17/17 01:12 Dose: 650 mg Artificial Tears (Artificial Tears) 0 ml OU DAILY PRN PRN Reason: Dry eyes Chlordiazepoxide (Librium) 25 mg PO Q8 [facility] PRN Reason: Protocol Last Admin: 04/19/17 06:17 Dose: 25 mg Folic Acid (Folic Acid) 1 mg PO DAILY [facility] Last Admin: 04/19/17 09:48 Dose: 1 mg Levetiracetam 1,000 mg/ Sodium (Chloride) 110 mls @ 460 mls/hr IV Q12 [facility] Last Admin: 04/19/17 09:48 Dose: 460 mls/hr Dexmedetomidine HCl (Precedex 4 Mcg/Ml (100 Ml)) 400 mcg in 100 mls @ 3.969 mls /hr IV .Q24H PRN; Protocol; 0.2 MCG/KG/HR PRN Reason: Agitation Last Titration: 04/18/17 21:03 Dose: 0.2 mcg/kg/hr, 3.969 mls/hr Sodium Chloride (Sodium Chloride 0.9%) 1,000 mls @ 125 mls/hr IV .Q8H [facility] Last Admin: 04/19/17 03:15 Dose: 125 mls/hr Lorazepam (Ativan) 2 mg IVP Q2 PRN; Protocol PRN Reason: Symptoms of alcohol withdrawl Multivitamins/Minerals (Therapeutic-M Tab) 1 tab PO 0800 [facility] Last Admin: 04/19/17 09:48 Dose: 1 tab Nitroglycerin (Nitrostat Sl Tab) 0.4 mg SL Q5MIN PRN PRN Reason: Chest Pain Ondansetron HCl (Zofran Inj) 4 mg IVP Q6H PRN PRN Reason: Nausea/Vomiting Last Admin: 04/15/17 10:49 Dose: 4 mg Pantoprazole Sodium (Protonix Ec Tab) 40 mg PO 0600 [facility] Last Admin: 04/19/17 06:25 Dose: 40 mg Thiamine HCl (Vitamin B1 Tab) 50 mg PO DAILY [facility] Last Admin: 04/18/17 12:00 Dose: 50 mg - Labs Labs: 04/19/17 06:30 04/19/17 06:30 PT 10.9 Seconds (9.9-11.8) 04/15/17 01:46 INR 1.01 (0.93-1.08) 04/15/17 01:46 APTT 30.2 Seconds (23.7-30.8) 04/15/17 01:46 - Constitutional Appears: Well, Non-toxic, No Acute Distress - Head Exam Head Exam: ATRAUMATIC, NORMOCEPHALIC - Eye Exam Eye Exam: Conjunctival injection (right eye hyperemia), EOMI, Normal appearance - ENT Exam ENT Exam: Mucous Membranes Moist - Neck Exam Neck Exam: Normal Inspection. absent: Tenderness, Thyromegaly - Respiratory Exam Respiratory Exam: Clear to Ausculation Bilateral, NORMAL BREATHING PATTERN. absent: Rales, Rhonchi, Wheezes - Cardiovascular Exam Cardiovascular Exam: RRR, +S1, +S2. absent: JVD - GI/Abdominal Exam GI & Abdominal Exam: Soft, Normal Bowel Sounds. absent: Guarding, Rigid - Rectal Exam Rectal Exam: Deferred - Extremities Exam Extremities Exam: Normal Capillary Refill, Normal Inspection. absent: Tenderness - Neurological Exam Additional comments: sleepy - Psychiatric Exam Psychiatric exam: Normal Affect, Normal Mood Assessment and Plan - Assessment and Plan (Free Text) Assessment: 41 yo white male with a history of seizures, substance abuse who was admitted to ICU for alcohol withdrawal refractory to benzodiazepine administration. Plan: Neuro: Patient taken off Predex midnight. Patient is currently taken PO Librium q8h. Consider lowering dose to 10 mg today. Ativan PRN is on board for break- through alcohol withdrawal symptoms. Cardio: Troponins negative x3 done on admission. Patient denies any CP at this point. Hemodynamically stable. Maintain MAP > 65 Pulmonolgy: Maintain 02 sat >90%. Monitor for worsening respiratory status. GI: PUD prophylaxis with Protonix. Zofran for nausea. Regular diet, multivitamin , folate, and thiamine. Nephro: CK elevated, will consider IVF. Maintain euvolemia. Replenish electrolytes as needed. Endo: Maintain euglycemia. Goal glucose between 140-180 Heme/ID: Afebrile, improving leukocytosis. Maintain normothermia PT/OT pending. Consider transfer to telemetry once patient is stable off the Precedex.
[2017-04-19] MEDS: Aritificial Tears (15ml) OU PRN (10:39)
--- NOTE | 2017-04-19 16:58 | CP.PCM.PN ---
Subjective - Date & Time of Evaluation Date of Evaluation: 04/19/17 Time of Evaluation: 09:15 - Subjective Subjective: Pt is a 41 yo M with a PMHx of chronic alcohol and substance abuse presents with a cc of chest pain. Pt admits to heavy alcohol use (beer and whiskey), cocaine, and marijuana use over the last few days. During this time, he reports non-localized, constant chest pain and pressure. Pt also admits to nausea and non-bilious hematemesis x1. Pt is a poor historian as he could not remember many of the events over the last day. Pt has been admitted several times in the past for similar occurrences. Patient had a rapid response called on him yesterday, 04/15/2017, / a fall; patient was given Ativan and felt better. Pt s&e at bedside today, 04/18/2017. He is feeling less nauseas, less confused , but is tired. He is on a precedex drip, but his librium was decreased to 10 q 8 today. Objective - Vital Signs/Intake and Output Vital Signs (last 24 hours): Temp Pulse Resp BP Pulse Ox 97.6 F 78 18 116/72 100 04/19/17 13:40 04/19/17 13:40 04/19/17 13:40 04/19/17 13:40 04/19/17 03:00 Intake and Output: 04/19/17 04/19/17 06:59 18:59 Intake Total 2452 Output Total 1100 Balance 1352 - Medications Medications: Current Medications Acetaminophen (Tylenol 325mg Tab) 650 mg PO Q6H PRN PRN Reason: Pain, moderate (4-7) Last Admin: 04/17/17 01:12 Dose: 650 mg Artificial Tears (Artificial Tears) 0 ml OU DAILY PRN PRN Reason: Dry eyes Last Admin: 04/19/17 10:39 Dose: 1 drop Chlordiazepoxide (Librium) 10 mg PO Q8 [facility] PRN Reason: Protocol Folic Acid (Folic Acid) 1 mg PO DAILY [facility] Last Admin: 04/19/17 09:48 Dose: 1 mg Levetiracetam 1,000 mg/ Sodium (Chloride) 110 mls @ 460 mls/hr IV Q12 [facility] Last Admin: 04/19/17 09:48 Dose: 460 mls/hr Dexmedetomidine HCl (Precedex 4 Mcg/Ml (100 Ml)) 400 mcg in 100 mls @ 3.969 mls /hr IV .Q24H PRN; Protocol; 0.2 MCG/KG/HR PRN Reason: Agitation Last Titration: 04/18/17 21:03 Dose: 0.2 mcg/kg/hr, 3.969 mls/hr Sodium Chloride (Sodium Chloride 0.9%) 1,000 mls @ 125 mls/hr IV .Q8H [facility] Last Admin: 04/19/17 03:15 Dose: 125 mls/hr Lorazepam (Ativan) 2 mg IVP Q2 PRN; Protocol PRN Reason: Symptoms of alcohol withdrawl Multivitamins/Minerals (Therapeutic-M Tab) 1 tab PO 0800 [facility] Last Admin: 04/19/17 09:48 Dose: 1 tab Nitroglycerin (Nitrostat Sl Tab) 0.4 mg SL Q5MIN PRN PRN Reason: Chest Pain Ondansetron HCl (Zofran Inj) 4 mg IVP Q6H PRN PRN Reason: Nausea/Vomiting Last Admin: 04/15/17 10:49 Dose: 4 mg Pantoprazole Sodium (Protonix Ec Tab) 40 mg PO 0600 [facility] Last Admin: 04/19/17 06:25 Dose: 40 mg Thiamine HCl (Vitamin B1 Tab) 50 mg PO DAILY [facility] Last Admin: 04/19/17 09:59 Dose: 50 mg - Labs Labs: 04/19/17 06:30 04/19/17 06:30 PT 10.9 Seconds (9.9-11.8) 04/15/17 01:46 INR 1.01 (0.93-1.08) 04/15/17 01:46 APTT 30.2 Seconds (23.7-30.8) 04/15/17 01:46 - Additional Findings Additional findings: Phys Exam Constitutional: +drowsy; a&o x 4, nad Head and Neck: neck supple, no jvd, trachea midline, carotid midline, no cervical/head mass Eyes: katie, nonicteric sclera, eom intact ENT: auditory acuity grossly intact, throat not congested, no nasal deformity Cardio: rrr, no m/r/g, no carotid bruit, nml s1, s2 Pulm: no accessory muscle use, equal nml breath sounds bilaterally, ctab Abd: s/nt/nd, nbs x 4 q, no palpable masses Derm: no rashes, no ulcers, no lesions Extr: no edema, no cyanosis, no calf tenderness, no lesions, no varicosities Neuro: cn II-XII grossly intact, ue and le 5/5 muscle strength~bilaterally, no los ue, le bilaterally and core Assessment and Plan - Assessment and Plan (Free Text) Assessment: A/P 41 yo M with a PMHx of chronic alcohol and substance abuse will be admitted for evaluation and treatment for alcohol withdrawal and chest pain. 1. Chest pain r/o acs - resolved -Cardiology consulted -Tropes, EKG, TSH all normal -Echo: LV normal, VEF normal; mild TR, mild pulm HTN 2. 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 Abdominal pain -GI consulted -F/u Lipase -F/u CT abdomen -Monitor LFTs -Zofran for nausea 4. GI/DVT PPHXS -Protonix/SCD Pt d/w Dr. Chandler
[2017-04-20] MEDS: Pantoprazole 40 mg EC Tab PO SCH (05:27)
[2017-04-20] MEDS: Sodium Chloride 0.9% 1,000 ML IV SCH (06:49)
[2017-04-20 08:15] LABS: MEAN CELL VOLUME 87.7 fL (80.0-105.0); MEAN CORPUSCULAR HEMOGLOBIN 30.2 pg (25.0-35.0); MEAN CORPUSCULAR HGB CONC 34.4 g/dl (31.0-37.0); RBC 3.98 10^6/uL (3.5-6.1); RED CELL DISTRIBUTION WIDTH 12.2 % (11.5-14.5); WHITE BLOOD COUNT 8.4 10^3/ul (4.5-11.0)
[2017-04-20 08:40] LABS: ALB/GLOB RATIO 1.3 (1.1-1.8); ALBUMIN 3.6 g/dL (3.0-4.8); ALT/SGPT 32 U/L (7-56); AST/SGOT 36 U/L (15-59); BLOOD UREA NITROGEN 15 mg/dL (7-21); CALCIUM 8.9 mg/dL (8.4-10.5); GFR AFRICAN-AMERICAN > 60; GFR NON-AFRICAN AMERICAN > 60
[2017-04-20] MEDS: levETIRAcetam 1,000 MG in Sodium Chloride 0.9% 100 ML IV SCH (10:18)
[2017-04-20] MEDS: Multivitamin With Minerals Tab PO SCH (10:19)
--- NOTE | 2017-04-20 11:38 | CP.PCM.PN ---
<OCHOA LUNDY - Last Filed: 04/20/17 13:13> Subjective - Date & Time of Evaluation Date of Evaluation: 04/20/17 Time of Evaluation: 10:00 - Subjective Subjective: Medicine Progress Note: Pt was seen and assessed at bedside. Pt had no new complaints this morning. He states that he is feeling better and would like to go home when possible. He notes that he knows that his "drinking" is the reason that hes here and knows that he needs to quit. Pt denies headache, dizziness, changes in vision, seizures, shortness of breath, chest pain, abdominal pain, N/V or diarrhea. Objective - Vital Signs/Intake and Output Vital Signs (last 24 hours): Temp Pulse Resp BP Pulse Ox 97.7 F 62 20 112/65 96 04/20/17 08:00 04/20/17 08:00 04/20/17 08:00 04/20/17 08:00 04/20/17 08:00 Intake and Output: 04/20/17 04/20/17 06:59 18:59 Intake Total 850 Output Total 1800 Balance -950 - Medications Medications: Current Medications Acetaminophen (Tylenol 325mg Tab) 650 mg PO Q6H PRN PRN Reason: Pain, moderate (4-7) Last Admin: 04/17/17 01:12 Dose: 650 mg Artificial Tears (Artificial Tears) 0 ml OU DAILY PRN PRN Reason: Dry eyes Last Admin: 04/19/17 10:39 Dose: 1 drop Chlordiazepoxide (Librium) 10 mg PO Q8 DELL PRN Reason: Protocol Last Admin: 04/20/17 05:27 Dose: 10 mg Folic Acid (Folic Acid) 1 mg PO DAILY DELL Last Admin: 04/20/17 10:18 Dose: 1 mg Levetiracetam 1,000 mg/ Sodium (Chloride) 110 mls @ 460 mls/hr IV Q12 DELL Last Admin: 04/20/17 10:18 Dose: 460 mls/hr Dexmedetomidine HCl (Precedex 4 Mcg/Ml (100 Ml)) 400 mcg in 100 mls @ 3.969 mls /hr IV .Q24H PRN; Protocol; 0.2 MCG/KG/HR PRN Reason: Agitation Last Titration: 04/18/17 21:03 Dose: 0.2 mcg/kg/hr, 3.969 mls/hr Sodium Chloride (Sodium Chloride 0.9%) 1,000 mls @ 125 mls/hr IV .Q8H [facility] Last Admin: 04/20/17 06:49 Dose: Not Given Lorazepam (Ativan) 2 mg IVP Q2 PRN; Protocol PRN Reason: Symptoms of alcohol withdrawl Multivitamins/Minerals (Therapeutic-M Tab) 1 tab PO 0800 [facility] Last Admin: 04/20/17 10:19 Dose: 1 tab Nitroglycerin (Nitrostat Sl Tab) 0.4 mg SL Q5MIN PRN PRN Reason: Chest Pain Ondansetron HCl (Zofran Inj) 4 mg IVP Q6H PRN PRN Reason: Nausea/Vomiting Last Admin: 04/15/17 10:49 Dose: 4 mg Pantoprazole Sodium (Protonix Ec Tab) 40 mg PO 0600 [facility] Last Admin: 04/20/17 05:27 Dose: 40 mg Thiamine HCl (Vitamin B1 Tab) 50 mg PO DAILY [facility] Last Admin: 04/20/17 10:19 Dose: 50 mg - Labs Labs: 04/20/17 06:50 04/20/17 06:50 PT 10.9 Seconds (9.9-11.8) 04/15/17 01:46 INR 1.01 (0.93-1.08) 04/15/17 01:46 APTT 30.2 Seconds (23.7-30.8) 04/15/17 01:46 - Constitutional Appears: No Acute Distress - Head Exam Head Exam: NORMAL INSPECTION, NORMOCEPHALIC - Eye Exam Eye Exam: EOMI, Normal appearance, PERRL - ENT Exam ENT Exam: Mucous Membranes Moist, Normal Exam - Neck Exam Neck Exam: Full ROM, Normal Inspection. absent: Lymphadenopathy - Respiratory Exam Respiratory Exam: Clear to Ausculation Bilateral, NORMAL BREATHING PATTERN. absent: Rales, Rhonchi, Wheezes, Respiratory Distress - Cardiovascular Exam Cardiovascular Exam: REGULAR RHYTHM, +S1, +S2. absent: Murmur - GI/Abdominal Exam GI & Abdominal Exam: Normal Bowel Sounds. absent: Distended, Guarding, Tenderness, Hernia - Extremities Exam Extremities Exam: absent: Calf Tenderness, Pedal Edema - Neurological Exam Neurological Exam: Alert, Awake, Oriented x3 - Psychiatric Exam Psychiatric exam: Normal Affect, Normal Mood - Skin Skin Exam: Dry, Intact, Normal Color, Warm Assessment and Plan - Assessment and Plan (Free Text) Assessment: Mr. Arguelles is a 41 year old male with a past medical history of chronic alcohol and substance abuse who presented with alcohol withdrawal and chest pain. Plan: 1. Alcohol withdrawal -CIWA protocol: Current score 0 -cont Ativan 1q2 prn -cont Librium 10 mg -Folic acid, thiamine, multivitamin -Counseled on alcohol risks and cessation -PT/OT to evaluate patients ability to ambulate today 2. Chest Pain r/o ACS -resolved -Cardiology consulted, all recommendations appreciated -Troponins, EKG, TSH all normal -Echo: LV normal, EF normal; mild TR, mild pulm HTN 3. Abdominal pain -GI consulted, all recommendations appreciated -Monitor LFTs -Zofran PRN for nausea/vomiting 4. GI/DVT Prophylaxis -Protonix/SCD's Patient seen and case discussed in detail with attending, Dr. Beach. <Mari Beach - Last Filed: 04/20/17 16:07> Objective - Vital Signs/Intake and Output Vital Signs (last 24 hours): Temp Pulse Resp BP Pulse Ox 97.7 F 62 20 112/65 96 04/20/17 08:00 04/20/17 08:00 04/20/17 08:00 04/20/17 08:00 04/20/17 08:00 Intake and Output: 04/20/17 04/20/17 06:59 18:59 Intake Total 850 600 Output Total 1800 1200 Balance -950 -600 - Medications Medications: Current Medications Acetaminophen (Tylenol 325mg Tab) 650 mg PO Q6H PRN PRN Reason: Pain, moderate (4-7) Last Admin: 04/17/17 01:12 Dose: 650 mg Artificial Tears (Artificial Tears) 0 ml OU DAILY PRN PRN Reason: Dry eyes Last Admin: 04/19/17 10:39 Dose: 1 drop Chlordiazepoxide (Librium) 10 mg PO Q8 DELL PRN Reason: Protocol Last Admin: 04/20/17 14:35 Dose: 10 mg Enoxaparin Sodium (Lovenox) 40 mg SC DAILY DELL PRN Reason: Protocol Folic Acid (Folic Acid) 1 mg PO DAILY DELL Last Admin: 04/20/17 10:18 Dose: 1 mg Dexmedetomidine HCl (Precedex 4 Mcg/Ml (100 Ml)) 400 mcg in 100 mls @ 3.969 mls /hr IV .Q24H PRN; Protocol; 0.2 MCG/KG/HR PRN Reason: Agitation Last Titration: 04/18/17 21:03 Dose: 0.2 mcg/kg/hr, 3.969 mls/hr Levetiracetam (Keppra) 500 mg PO BID DELL Lorazepam (Ativan) 2 mg IVP Q2 PRN; Protocol PRN Reason: Symptoms of alcohol withdrawl Multivitamins/Minerals (Therapeutic-M Tab) 1 tab PO 0800 [facility] Last Admin: 04/20/17 10:19 Dose: 1 tab Nitroglycerin (Nitrostat Sl Tab) 0.4 mg SL Q5MIN PRN PRN Reason: Chest Pain Ondansetron HCl (Zofran Inj) 4 mg IVP Q6H PRN PRN Reason: Nausea/Vomiting Last Admin: 04/15/17 10:49 Dose: 4 mg Pantoprazole Sodium (Protonix Ec Tab) 40 mg PO 0600 [facility] Last Admin: 04/20/17 05:27 Dose: 40 mg Thiamine HCl (Vitamin B1 Tab) 100 mg PO DAILY [facility] - Labs Labs: 04/20/17 06:50 04/20/17 06:50 PT 10.9 Seconds (9.9-11.8) 04/15/17 01:46 INR 1.01 (0.93-1.08) 04/15/17 01:46 APTT 30.2 Seconds (23.7-30.8) 04/15/17 01:46 Attending/Attestation - Attestation I have personally seen and examined this patient.: Yes I have fully participated in the care of the patient.: Yes I have reviewed all pertinent clinical information, including history, physical exam and plan: Yes Notes (Text): 04/20/17 16:00 attending note; Patient seen and examined with resident. Patient is a 41-year-old male with a history of alcohol abuse is admitted with acute alcohol intoxication. Patient had severe withdrawal symptoms initially. currently improving. tolerating diet. patient is complaining of nausea. Patient had loose stool. Continue IV Ativan and Keppra. taper Librium. neurology evaluation appreciated. nausea and vomiting; resolving slowly.GI evaluation appreciated. mild rhabdomyoysis; post seizure. CPK resolved. atypical chest pain; cardiac enzymes negative. Cardiology evaluation appreciated. echocardiogram normal. PT evaluation Appreciated. Possible discharge tomorrow if clinically stable. upon discharge the patient will follow-up with [facility] clinic. Patient is advised to complete [facility] care Paperwork.
[2017-04-20] MEDS: Enoxaparin 40 mg Syringe SC SCH (17:06)
[2017-04-20] MEDS: Aritificial Tears (15ml) OU PRN (21:36)
[2017-04-21] MEDS: Pantoprazole 40 mg EC Tab PO SCH (05:38)
[2017-04-21 07:37] LABS: HEMOGLOBIN 12.4 gm/dL (14.0-18.0); MEAN CELL VOLUME 87.8 fL (80.0-105.0); MEAN CORPUSCULAR HEMOGLOBIN 29.7 pg (25.0-35.0); MEAN CORPUSCULAR HGB CONC 33.9 g/dl (31.0-37.0); MEAN PLATELET VOLUME 9.2 fl (7.0-11.0); RBC 4.17 10^6/uL (3.5-6.1); RED CELL DISTRIBUTION WIDTH 12.4 % (11.5-14.5); WHITE BLOOD COUNT 9.3 10^3/ul (4.5-11.0)
[2017-04-21 08:00] LABS: ALB/GLOB RATIO 1.5 (1.1-1.8); ALT/SGPT 29 U/L (7-56); AST/SGOT 25 U/L (15-59); BLOOD UREA NITROGEN 16 mg/dL (7-21); CALCIUM 9.3 mg/dL (8.4-10.5); GFR AFRICAN-AMERICAN > 60; GFR NON-AFRICAN AMERICAN > 60
[2017-04-21 08:11] VITALS: BP 115/74; PULSE 58; RESP 20; TEMP 97.4; O2SAT 99
[2017-04-21] MEDS: Enoxaparin 40 mg Syringe SC SCH (10:44)
[2017-04-21] MEDS: Multivitamin With Minerals Tab PO SCH (10:45)
--- NOTE | 2017-04-22 14:30 | CP.PCM.DIS ---
<OCHOA LUNDY - Last Filed: 04/22/17 14:27> Provider - Provider Date of Admission: 04/15/17 17:05 Attending physician: Mari Beach MD Primary care physician: None Consults: Cardiology- Dr. Madison GI- Dr. Ngo Neurology- Dr. Reyes Psychiatry- Dr. Barnhart Time Spent in preparation of Discharge (in minutes): 51 Hospital Course - Lab Results Lab Results: Micro Results 04/21/17 00:30 Stool C. difficile Antigen & Toxin A,B (M - Final 04/17/17 07:25 Nose MRSA Culture (Admit) - Final MRSA NOT DETECTED Most Recent Lab Values WBC 9.3 10^3/ul (4.5-11.0) 04/21/17 06:30 RBC 4.17 10^6/uL (3.5-6.1) 04/21/17 06:30 Hgb 12.4 gm/dL (14.0-18.0) L 04/21/17 06:30 Hct 36.6 % (42.0-52.0) L 04/21/17 06:30 MCV 87.8 fL (80.0-105.0) 04/21/17 06:30 MCH 29.7 pg (25.0-35.0) 04/21/17 06:30 MCHC 33.9 g/dl (31.0-37.0) 04/21/17 06:30 RDW 12.4 % (11.5-14.5) 04/21/17 06:30 Plt Count 197 10^3/uL (120.0-450.0) 04/21/17 06:30 MPV 9.2 fl (7.0-11.0) 04/21/17 06:30 PT 10.9 Seconds (9.9-11.8) 04/15/17 01:46 INR 1.01 (0.93-1.08) 04/15/17 01:46 APTT 30.2 Seconds (23.7-30.8) 04/15/17 01:46 pCO2 35 mm/Hg (35-45) 04/15/17 17:25 pO2 80.0 mm/Hg (80-100) 04/15/17 17:25 HCO3 22.7 mmol/L (21-28) 04/15/17 17:25 ABG pH 7.42 (7.35-7.45) 04/15/17 17:25 ABG Total CO2 23.8 mmol.L (22-28) 04/15/17 17:25 ABG O2 Saturation 97.8 % (95-98) 04/15/17 17:25 ABG O2 Content 19.1 ML/dl (15-23) 04/15/17 14:30 ABG Base Excess -1.3 mmol/L (-2.0-3.0) 04/15/17 17:25 ABG Hemoglobin 14.4 g/dL (11.7-17.4) 04/15/17 14:30 ABG Carboxyhemoglobin 2.3 % (0.5-1.5) H 04/15/17 14:30 POC ABG HHb (Measured) 2.6 % (0-5) 04/15/17 14:30 ABG Methemoglobin 1.1 % (0.0-3.0) 04/15/17 14:30 ABG O2 Capacity 19.6 mL/dl (16-24) 04/15/17 14:30 ABG Potassium 3.8 mmol/L (3.6-5.2) 04/15/17 17:25 Hgb O2 Saturation 94.0 % (95.0-98.0) L 04/15/17 14:30 Sodium 136.0 mmol/L (132-148) 04/15/17 17:25 Chloride 104.0 mmol/L (98-107) 04/15/17 17:25 Glucose 83 mg/dl (75-110) 04/15/17 17:25 Lactate 1.1 mmol/L (0.7-2.1) 04/15/17 17:25 FiO2 21.0 % 04/15/17 17:25 Sodium 139 mmol/L (132-148) 04/21/17 06:30 Potassium 3.5 mmol/L (3.6-5.0) L 04/21/17 06:30 Chloride 102 mmol/L (95-110) 04/21/17 06:30 Carbon Dioxide 28 mmol/L (21-33) 04/21/17 06:30 Anion Gap 13 (10-20) 04/21/17 06:30 BUN 16 mg/dL (7-21) 04/21/17 06:30 Creatinine 0.9 mg/dL (0.5-1.4) 04/21/17 06:30 Est GFR ( Amer) > 60 04/21/17 06:30 Est GFR (Non-Af Amer) > 60 04/21/17 06:30 POC Glucose (mg/dL) 72 mg/dL (65-110) 04/15/17 14:02 Random Glucose 86 mg/dL (70-110) 04/21/17 06:30 Calcium 9.3 mg/dL (8.4-10.5) 04/21/17 06:30 Phosphorus 3.1 mg/dL (2.5-4.5) 04/16/17 06:30 Magnesium 2.1 mg/dL (1.7-2.2) 04/16/17 06:30 Total Bilirubin 0.3 mg/dL (0.2-1.3) 04/21/17 06:30 AST 25 U/L (15-59) 04/21/17 06:30 ALT 29 U/L (7-56) 04/21/17 06:30 Alkaline Phosphatase 62 U/L (38-133) 04/21/17 06:30 Ammonia < 9 umol/L (9-33) L 04/15/17 16:50 Lactate Dehydrogenase 638 U/L (333-699) 04/15/17 01:46 Total Creatine Kinase 426 U/L (35-230) H 04/18/17 07:06 CK-MB (CK-2) 2.1 ng/mL (0.0-3.6) 04/18/17 07:06 CK-MB (CK-2) % 0.7 % (2.5-3.0) L 04/16/17 05:30 Troponin I < 0.01 ng/mL 04/15/17 13:50 Total Protein 6.7 g/dL (5.8-8.3) 04/21/17 06:30 Albumin 4.0 g/dL (3.0-4.8) 04/21/17 06:30 Globulin 2.7 gm/dL 04/21/17 06:30 Albumin/Globulin Ratio 1.5 (1.1-1.8) 04/21/17 06:30 Amylase 67 U/L (35-125) 04/15/17 13:50 Lipase 29 U/L (23-300) 04/15/17 13:50 TSH 3rd Generation 1.5 MIU/ml (0.46-4.68) 04/15/17 01:46 Arterial Blood Potassium 3.8 mmol/L (3.6-5.2) 04/15/17 17:25 Urine Color Yellow (YELLOW) 04/15/17 23:45 Urine Appearance Sl cloudy (CLEAR) 04/15/17 23:45 Urine pH 5.0 (4.7-8.0) 04/15/17 23:45 Ur Specific Calhoun >= 1.030 (1.005-1.035) 04/15/17 23:45 Urine Protein Trace mg/dL (<30 mg/dL) H 04/15/17 23:45 Urine Glucose (UA) Negative mg/dL (NEGATIVE) 04/15/17 23:45 Urine Ketones 40 mg/dL (NEGATIVE) H 04/15/17 23:45 Urine Blood Small (NEGATIVE) H 04/15/17 23:45 Urine Nitrate Negative (NEGATIVE) 04/15/17 23:45 Urine Bilirubin Negative (NEGATIVE) 04/15/17 23:45 Urine Urobilinogen 0.2 E.U./dL (<1 E.U./dL) 04/15/17 23:45 Ur Leukocyte Esterase Negative Roopa/uL (NEGATIVE) 04/15/17 23:45 Urine RBC 0 - 2 /hpf (0-2) 04/15/17 23:45 Urine WBC 0 - 2 /hpf (0-6) 04/15/17 23:45 Ur Epithelial Cells 0 - 2 /hpf (0-5) 04/15/17 23:45 Uric Acid Crystals Small /hpf 04/15/17 23:45 Urine Opiates Screen Negative (NEGATIVE) 04/15/17 23:45 Urine Methadone Screen Negative (NEGATIVE) 04/15/17 23:45 Ur Barbiturates Screen Negative (NEGATIVE) 04/15/17 23:45 Ur Phencyclidine Scrn Negative (NEGATIVE) 04/15/17 23:45 Ur Amphetamines Screen Negative (NEGATIVE) 04/15/17 23:45 U Benzodiazepines Scrn Negative (NEGATIVE) 04/15/17 23:45 U Oth Cocaine Metabols Negative (NEGATIVE) 04/15/17 23:45 U Cannabinoids Screen Negative (NEGATIVE) 04/15/17 23:45 Alcohol, Quantitative 222 mg/dL (0-10) H 04/15/17 07:30 Hepatitis A IgM Ab Negative (NEGATIVE) 04/16/17 05:30 Hep Bs Antigen Negative (NEGATIVE) 04/16/17 05:30 Hep B Core IgM Ab Negative (NEGATIVE) 04/16/17 05:30 Hepatitis C Antibody Negative (NEGATIVE) 04/16/17 05:30 Blood Type A POSITIVE 04/15/17 01:46 Antibody Screen Negative 04/15/17 01:46 BBK History Checked Patient has bt 04/15/17 01:46 - Hospital Course Hospital Course: Mr. Arguelles is a 41 year old male with a PMHx of chronic alcohol and substance abuse presented with complaints of chest pain, abdominal pain and alcohol withdrawal. For his chest pain, cardiology was consulted, serial troponins were ordered (with all negative), daily EKG's were ordered and an ECHO (showing LV normal, VEF normal; mild TR, mild pulm HTN). For his abdominal pain, GI was consulted, lipase was ordered (WNL), LFT's were elevated and monitored, and a CT abd/pelv showed sigmoid diverticulosis. For his alcohol withdrawal, CIWA protocols, Banana bag, Ativan 1q2 prn, Folic acid, thiamine, and multivitamin were all ordered. Patients alcohol level was measured at 375. A Code star was called for patient after an unwitnessed fall and seizure, and the rapid response team responded stat. A CT of his head was negative and an EKG showed sinus tachycardia. Neurology was consulted and started patient on Keppra. Patient was also started on librium. Patient was diagnosed as going into DT's and received multiple doses of Ativan to no effect. He was then transferred from telemetry to ICU and placed on precedex drip for sedation. 4 point restraints were used after patient displayed aggressive behavior, including three code greys. Once patient was transitioned off of precedex onto PO ativan and librium and was no longer displaying violent behavior, he was transferred back to the telemetry floors. Patients mental status continued to improve over the course of 48 hours and he proved to be capable of tolerating PO intake as well as the ability to ambulate without assistance. He was discharged on 04/21 with Librium, Keppra, folic acid, thiamine, a multivitamin, protonix and strong recommendations to continue with alcohol cessation upon discharge. He verbalized understanding of the importance of this and agreed to try recommended alcohol cessation meetings. - Date & Time of H&P Date of H&P: 04/15/17 Time of H&P: 05:29 Discharge Exam - Head Exam Head Exam: NORMAL INSPECTION, NORMOCEPHALIC - Eye Exam Eye Exam: EOMI, Normal appearance Additional comments: Conjunctival hemorrhage in R eye - ENT Exam ENT Exam: Mucous Membranes Moist, Normal Exam - Neck Exam Neck exam: Full Rom - Respiratory Exam Respiratory Exam: NORMAL BREATHING PATTERN, UNREMARKABLE. absent: Rales, Rhonchi, Wheezes, Respiratory Distress - Cardiovascular Exam Cardiovascular Exam: REGULAR RHYTHM, RRR, +S1, +S2. absent: Bradycardia, Tachycardia, Diastolic murmur, Systolic Murmur - GI/Abdominal Exam GI & Abdominal Exam: Normal Bowel Sounds, Unremarkable. absent: Distended, Firm , Tenderness - Extremities Exam Additional comments: No calf tenderness or pedal edema bilaterally - Neurological Exam Neurological exam: Alert, Normal Gait, Oriented x3 - Psychiatric Exam Psychiatric exam: Normal Affect, Normal Mood - Skin Skin Exam: Dry, Intact, Normal Color, Warm Discharge Plan - Discharge Medications Prescriptions: chlordiazePOXIDE [Librium] 5 mg PO Q8 #6 cap Folic Acid 1 mg PO DAILY #10 tab levETIRAcetam [Keppra] 500 mg PO BID #60 tab Multimineral/Multivitamin [Therapeutic-M Tab] 1 tab PO 0800 #30 tab Pantoprazole Sodium [Protonix] 40 mg PO DAILY #30 ect Thiamine [Vitamin B1 Tab] 100 mg PO DAILY #10 tab - Follow Up Plan Condition: STABLE Disposition: HOME/ ROUTINE Instructions: Thiamine (Vitamin B-1) (By mouth), Folic Acid (By mouth), Pantoprazole (By mouth), Levetiracetam (By mouth), Chest Pain (DC), How to Stop Smoking (DC), Pneumococcal Vaccine for Adults (GEN), Cigarette Smoking and Your Health (GEN), Regular Diet (DC), Alcohol Intoxication (DC), Abuse of Alcohol (DC ) Additional Instructions: You have been discharge from [facility]. 1. Please consider alcohol cessation. Follow up with [facility]. Call [phone] to confirm appointment. Stop alcohol abuse. Follow up with AA meetings/AA rehab. 2. If your symptoms persist or worsen, please go to the ED 3. Take medications as prescribed Referrals: David Ngo DO [Staff Provider] - <Mari Beach - Last Filed: 04/22/17 15:26> Provider - Provider Date of Admission: 04/15/17 17:05 Attending physician: Mari Beach MD Hospital Course - Lab Results Lab Results: Micro Results 04/21/17 00:30 Stool C. difficile Antigen & Toxin A,B (M - Final 04/17/17 07:25 Nose MRSA Culture (Admit) - Final MRSA NOT DETECTED Most Recent Lab Values WBC 9.3 10^3/ul (4.5-11.0) 04/21/17 06:30 RBC 4.17 10^6/uL (3.5-6.1) 04/21/17 06:30 Hgb 12.4 gm/dL (14.0-18.0) L 04/21/17 06:30 Hct 36.6 % (42.0-52.0) L 04/21/17 06:30 MCV 87.8 fL (80.0-105.0) 04/21/17 06:30 MCH 29.7 pg (25.0-35.0) 04/21/17 06:30 MCHC 33.9 g/dl (31.0-37.0) 04/21/17 06:30 RDW 12.4 % (11.5-14.5) 04/21/17 06:30 Plt Count 197 10^3/uL (120.0-450.0) 04/21/17 06:30 MPV 9.2 fl (7.0-11.0) 04/21/17 06:30 PT 10.9 Seconds (9.9-11.8) 04/15/17 01:46 INR 1.01 (0.93-1.08) 04/15/17 01:46 APTT 30.2 Seconds (23.7-30.8) 04/15/17 01:46 pCO2 35 mm/Hg (35-45) 04/15/17 17:25 pO2 80.0 mm/Hg (80-100) 04/15/17 17:25 HCO3 22.7 mmol/L (21-28) 04/15/17 17:25 ABG pH 7.42 (7.35-7.45) 04/15/17 17:25 ABG Total CO2 23.8 mmol.L (22-28) 04/15/17 17:25 ABG O2 Saturation 97.8 % (95-98) 04/15/17 17:25 ABG O2 Content 19.1 ML/dl (15-23) 04/15/17 14:30 ABG Base Excess -1.3 mmol/L (-2.0-3.0) 04/15/17 17:25 ABG Hemoglobin 14.4 g/dL (11.7-17.4) 04/15/17 14:30 ABG Carboxyhemoglobin 2.3 % (0.5-1.5) H 04/15/17 14:30 POC ABG HHb (Measured) 2.6 % (0-5) 04/15/17 14:30 ABG Methemoglobin 1.1 % (0.0-3.0) 04/15/17 14:30 ABG O2 Capacity 19.6 mL/dl (16-24) 04/15/17 14:30 ABG Potassium 3.8 mmol/L (3.6-5.2) 04/15/17 17:25 Hgb O2 Saturation 94.0 % (95.0-98.0) L 04/15/17 14:30 Sodium 136.0 mmol/L (132-148) 04/15/17 17:25 Chloride 104.0 mmol/L (98-107) 04/15/17 17:25 Glucose 83 mg/dl (75-110) 04/15/17 17:25 Lactate 1.1 mmol/L (0.7-2.1) 04/15/17 17:25 FiO2 21.0 % 04/15/17 17:25 Sodium 139 mmol/L (132-148) 04/21/17 06:30 Potassium 3.5 mmol/L (3.6-5.0) L 04/21/17 06:30 Chloride 102 mmol/L (95-110) 04/21/17 06:30 Carbon Dioxide 28 mmol/L (21-33) 04/21/17 06:30 Anion Gap 13 (10-20) 04/21/17 06:30 BUN 16 mg/dL (7-21) 04/21/17 06:30 Creatinine 0.9 mg/dL (0.5-1.4) 04/21/17 06:30 Est GFR ( Amer) > 60 04/21/17 06:30 Est GFR (Non-Af Amer) > 60 04/21/17 06:30 POC Glucose (mg/dL) 72 mg/dL (65-110) 04/15/17 14:02 Random Glucose 86 mg/dL (70-110) 04/21/17 06:30 Calcium 9.3 mg/dL (8.4-10.5) 04/21/17 06:30 Phosphorus 3.1 mg/dL (2.5-4.5) 04/16/17 06:30 Magnesium 2.1 mg/dL (1.7-2.2) 04/16/17 06:30 Total Bilirubin 0.3 mg/dL (0.2-1.3) 04/21/17 06:30 AST 25 U/L (15-59) 04/21/17 06:30 ALT 29 U/L (7-56) 04/21/17 06:30 Alkaline Phosphatase 62 U/L (38-133) 04/21/17 06:30 Ammonia < 9 umol/L (9-33) L 04/15/17 16:50 Lactate Dehydrogenase 638 U/L (333-699) 04/15/17 01:46 Total Creatine Kinase 426 U/L (35-230) H 04/18/17 07:06 CK-MB (CK-2) 2.1 ng/mL (0.0-3.6) 04/18/17 07:06 CK-MB (CK-2) % 0.7 % (2.5-3.0) L 04/16/17 05:30 Troponin I < 0.01 ng/mL 04/15/17 13:50 Total Protein 6.7 g/dL (5.8-8.3) 04/21/17 06:30 Albumin 4.0 g/dL (3.0-4.8) 04/21/17 06:30 Globulin 2.7 gm/dL 04/21/17 06:30 Albumin/Globulin Ratio 1.5 (1.1-1.8) 04/21/17 06:30 Amylase 67 U/L (35-125) 04/15/17 13:50 Lipase 29 U/L (23-300) 04/15/17 13:50 TSH 3rd Generation 1.5 MIU/ml (0.46-4.68) 04/15/17 01:46 Arterial Blood Potassium 3.8 mmol/L (3.6-5.2) 04/15/17 17:25 Urine Color Yellow (YELLOW) 04/15/17 23:45 Urine Appearance Sl cloudy (CLEAR) 04/15/17 23:45 Urine pH 5.0 (4.7-8.0) 04/15/17 23:45 Ur Specific Calhoun >= 1.030 (1.005-1.035) 04/15/17 23:45 Urine Protein Trace mg/dL (<30 mg/dL) H 04/15/17 23:45 Urine Glucose (UA) Negative mg/dL (NEGATIVE) 04/15/17 23:45 Urine Ketones 40 mg/dL (NEGATIVE) H 04/15/17 23:45 Urine Blood Small (NEGATIVE) H 04/15/17 23:45 Urine Nitrate Negative (NEGATIVE) 04/15/17 23:45 Urine Bilirubin Negative (NEGATIVE) 04/15/17 23:45 Urine Urobilinogen 0.2 E.U./dL (<1 E.U./dL) 04/15/17 23:45 Ur Leukocyte Esterase Negative Roopa/uL (NEGATIVE) 04/15/17 23:45 Urine RBC 0 - 2 /hpf (0-2) 04/15/17 23:45 Urine WBC 0 - 2 /hpf (0-6) 04/15/17 23:45 Ur Epithelial Cells 0 - 2 /hpf (0-5) 04/15/17 23:45 Uric Acid Crystals Small /hpf 04/15/17 23:45 Urine Opiates Screen Negative (NEGATIVE) 04/15/17 23:45 Urine Methadone Screen Negative (NEGATIVE) 04/15/17 23:45 Ur Barbiturates Screen Negative (NEGATIVE) 04/15/17 23:45 Ur Phencyclidine Scrn Negative (NEGATIVE) 04/15/17 23:45 Ur Amphetamines Screen Negative (NEGATIVE) 04/15/17 23:45 U Benzodiazepines Scrn Negative (NEGATIVE) 04/15/17 23:45 U Oth Cocaine Metabols Negative (NEGATIVE) 04/15/17 23:45 U Cannabinoids Screen Negative (NEGATIVE) 04/15/17 23:45 Alcohol, Quantitative 222 mg/dL (0-10) H 04/15/17 07:30 Hepatitis A IgM Ab Negative (NEGATIVE) 04/16/17 05:30 Hep Bs Antigen Negative (NEGATIVE) 04/16/17 05:30 Hep B Core IgM Ab Negative (NEGATIVE) 04/16/17 05:30 Hepatitis C Antibody Negative (NEGATIVE) 04/16/17 05:30 Blood Type A POSITIVE 04/15/17 01:46 Antibody Screen Negative 04/15/17 01:46 BBK History Checked Patient has bt 04/15/17 01:46 Attending/Attestation - Attestation I have personally seen and examined this patient.: Yes I have fully participated in the care of the patient.: Yes I have reviewed all pertinent clinical information, including history, physical exam and plan: Yes Notes (Text): 04/22/17 15:23 attending note; Patient seen and examined with resident. Patient is a 41-year-old male with a history of alcohol abuse is admitted with acute alcohol intoxication. Patient had severe withdrawal symptoms treated with IV ativan. tolerating diet. Patient had loose stool. c diff is negative. Treated with IV Ativan, Keppra and Librium. neurology evaluation appreciated. tolerating diet well. mild rhabdomyoysis; post seizure. CPK resolved. atypical chest pain; cardiac enzymes negative. Cardiology evaluation appreciated. echocardiogram normal. Patient is ambulating. upon discharge the patient [place] [facility] Patient is advised to complete [facility]. Diagnosis; Alcohol abuse Alcohol withdrawal symptoms Mild rhabdomyolysis Gastritis 04/22/17 15:25
== END 2017-04-21 13:49 | disposition home or self-care (01) | DRG 750 ==
LOC: ED 00:46 → ERH 04:25 → 2RNO 07:08 → OBSVTOIN 17:05 → CCU 04-17 05:42 → 5RSO 04-19 23:11
PROVIDERS: ADMIT Internal Medicine; ATTEND Internal Medicine
PROC: HZ2ZZZZ Detoxification Services for Substance Abuse Treatment (ICD-10-PCS; principal; 2017-04-16)
DX: F10.231 Alcohol dependence with withdrawal delirium (principal); K92.0 Hematemesis; F14.10 Cocaine abuse, uncomplicated; M62.82 Rhabdomyolysis; E87.2 Acidosis; I27.2 Other secondary pulmonary hypertension; G93.89 Other specified disorders of brain; K85.90 Acute pancreatitis without necrosis or infection, unspecified; R07.89 Other chest pain; F17.210 Nicotine dependence, cigarettes, uncomplicated; Y90.8 Blood alcohol level of 240 mg/100 ml or more; G40.909 Epilepsy, unspecified, not intractable, without status epilepticus; K70.10 Alcoholic hepatitis without ascites; F12.90 Cannabis use, unspecified, uncomplicated; K57.30 Diverticulosis of large intestine without perforation or abscess without bleeding; K29.70 Gastritis, unspecified, without bleeding; Z78.1 Physical restraint status; Z91.81 History of falling